=== PATIENT | female | born 1945 | race Caucasian/White ===

== ENCOUNTER → 2024-07-04 | Outpatient (CLI) | payer MEDICARE, BC, SELFPAY ==
[2024-07-04 17:15] LABS: Amphetamine/Methamp Scrn,U Negative (Negative); Barbiturate Screen,Urine Negative (Negative); Benzodiazepines Screen,Urine Negative (Negative); Benzoylecgonine Screen, Ur Negative (Negative); Fentanyl Screen,Urine Negative (Negative); Opiate Screen,Urine Positive (Negative); THC Screen,Urine Negative (Negative)
== END | disposition home or self-care (01) ==
LOC: SLDO 15:00
PROVIDERS: PCP Family Medicine; Referring Provider Family Medicine; Visit Provider Family Medicine
DX: M54.2 Cervicalgia (principal); Z71.51 Drug abuse counseling and surveillance of drug abuser
CPT/HCPCS: 80307

== ENCOUNTER 2024-07-30 15:37 | Inpatient (IN) | payer MEDICARE, BC, SELFPAY ==
[2024-07-30 15:45] VITALS: BP 165/99; PULSE 83; RESP 20; TEMP 36.4; O2SAT 97
[2024-07-30 16:04] VITALS: BMI 34.7
[2024-07-30 16:10] VITALS: BP 147/78; PULSE 89; TEMP 37.2; O2SAT 98
--- NOTE | 2024-07-30 16:34 | XR_ITS ---
Examination: CT brain head without contrast. 2-D sagittal coronal reconstructions Date and time of exam:July 30, 2024 1832 hrs. Indications: Onset generalized head today CTDI: vol (mGy):44.7 DLP: (mGycm):843 Technique: Multiple CT axial sections of the brain have been obtained, 5 mm slice thickness. Contrast has not been administered. 2-D sagittal, coronal reconstructions have been obtained Low dose protocols were performed. One or more of the following dose reduction techniques were used; automated exposure control, adjustment of the mA and/or KV according to patient size, use of iterative reconstruction technique. Findings: No significant ventricular enlargement. Intra-axial or extra-axial hemorrhage density is not seen. No mass effect or midline shift Basal cisterns are not remarkable. Fourth ventricle is midline. Cranial vault intact. Impression: Negative for acute hemorrhage, mass effect or midline shift Advise clinical correlation follow-up accordingly
--- NOTE | 2024-07-30 16:34 | XR_ITS ---
Examination: Left knee 2 views Technique one AP lateral left knee 2 views Exam date and time: July 30, 2024 1746 hrs. Indications: Patient fell today with injury to the knee, knee pain. Findings: Severe osteopenia No acute fracture No patellar dislocation Significant narrowing medial joint space Impression: No acute fracture Given the severe osteopenia, suggest short-term follow-up plain films of the knee as clinically warranted
--- NOTE | 2024-07-30 16:34 | XR_ITS ---
Examination: CT cervical spine without contrast 2-D sagittal reconstructions 2-D coronal reconstructions 3-D reconstructions. Exam date and time:July 30, 20242022 hrs. Indications: Patient fell today with injury to the neck, neck pain CTDI:vol (mGy) 7.76 DLP: (mGycm) 175 Technique: Multiple 2 mm axial sections of the cervical spine have been obtained. The coronal and sagittal reconstructions have been obtained. 3-D reconstructions have been obtained. Low dose protocols were performed. One or more of the following dose reduction techniques were used; automated exposure control, adjustment of the mA and/or KV according to patient size, use of iterative reconstruction technique. Findings: Axial sections demonstrate intact base of the skull. C1 exhibit satisfactory relationship to the odontoid. No acute cervical vertebral body fracture seen. Alignment posterior spinous processes satisfactory. Impression: No acute cervical fracture. Subtle edema in the upper lung zones
--- NOTE | 2024-07-30 16:34 | XR_ITS ---
Examination: AP chest single view Technique one AP portable semiupright chest single view Exam date and time: July 30, 2024 1649 hrs. Comparison 12/20/2011 Indications: Patient fell today with injury to the chest, chest pain Findings: Mild enlargement cardiac contour Ectatic thoracic aorta. No pneumothorax Prominent osteopenia Clavicles ribs appear intact Impression: No pneumothorax pulmonary contusion or hemothorax
--- NOTE | 2024-07-30 16:34 | XR_ITS ---
Examination:Left hip AP, lateral, AP pelvis 3 views Technique: Hip AP lateral, AP pelvis, 3 views Exam date and time:5 1746 hrs. Indications: Patient fell today with into the left hip, left hip pain. Findings: Acute angulated intertrochanteric fracture left hip Prominent osteopenia No hip dislocation Impression: Acute angulated intertrochanteric fracture left hip.
--- NOTE | 2024-07-30 16:38 | PD.EDFALL ---
ED Fall Injury RME/HPI General Chief Complaint: Fall Stated Complaint: FALL Time Seen by Provider: 07/30/24 16:31 Arrival date/time: 07/30/24 15:37 RME / HPI RME / HPI Narrative: 79-year-old female patient with significant history of chronic A-fib, currently taking Eliquis, came in via EMS for evaluation regarding ground-level fall. Patient sustained a ground-level fall after tripping on something, resulting in the pain to the left hip, left knee. Patient also hit the back of the head on the chair. Denies any neck pain denies any headache denies any LOC denies any other complaints. Patient is unable to ambulate due to pain. No medication was taken prior to arrival. Related Data Home Medications ?Medication ?Instructions ?Recorded ?Confirmed Hydrochlorothiazide 1 tab PO QDAY ##0 11/05/15 01/15/23 Synthroid 1 tab PO QDAY ##0 11/05/15 01/15/23 montelukast 10 mg tablet 10 mg PO HS #0 tabs 11/05/15 01/15/23 (Singulair) Losartan Potassium * (COZAAR *) 25 mg PO QDAY #0 tabs 04/02/17 01/15/23 albuterol sulfate 90 mcg/actuation 2 puff inhalation .prn PRN 04/01/18 01/15/23 aerosol inhaler (ProAir HFA) Respiratory Distress hydrocodone-homatropine 5 mg-1.5 1 tab PO QID 12/05/21 01/15/23 mg tablet Held on 03/08/22. Instructions: Resume on 03/09/22. loratadine 10 mg tablet 10 mg PO QDAY 12/05/21 01/15/23 pantoprazole 40 mg tablet,delayed 1 tab PO QDAY 12/05/21 01/15/23 release cranberry 500 mg capsule 650 mg PO DAILY 12/06/21 01/15/23 milk thistle seed extract 140 250 cap PO DAILY 12/06/21 01/15/23 mg-milk thistle 500 mg capsule omega 6-vei-nmi-fish oil 1,000 mg 1,000 cap PO DAILY 12/06/21 01/15/23 (120 mg-180 mg) capsule (Fish Oil) turmeric 400 mg capsule 1,000 mg PO DAILY 12/06/21 01/15/23 apixaban 5 mg tablet (Eliquis) 5 mg PO BID 01/15/23 01/15/23 tramadol 50 mg tablet 50 mg PO BID PRN 01/15/23 01/15/23 Previous Rx's ?Medication ?Instructions ?Recorded bisacodyl 10 mg rectal suppository 10 mg SC QDAY PRN constipation #12 12/11/21 (Dulcolax (bisacodyl)) ea Allergies Allergy/AdvReac Type Severity Reaction Status Date / Time Iodinated Contrast Media Allergy Severe Rash Verified 01/15/23 13:30 Sulfa (Sulfonamide Allergy Severe RASH / Verified 01/15/23 13:30 Antibiotics) SWELLING adhesive tape Allergy Intermediate Rash Verified 01/15/23 13:30 iodine Allergy Intermediate SWELLING Verified 01/15/23 13:30 latex Allergy Intermediate RASH Verified 01/15/23 13:30 Review of Systems Review of Systems Narrative Review of Systems: Review of system reviewed and within normal limits except mentioned in HPI ED Exam Narrative Physical exam: VITAL SIGNS: Reviewed. GENERAL APPEARANCE: Alert and interactive, follows commands, no acute distress, HEAD AND FACE: Non-traumatic. ENT: PERRL, pink conjunctivitis, eyelid no trauma, Mucous membrane moist. NECK: Supple, nontender, no nuchal rigidity. CHEST: No tenderness, no crepitus, no paradoxical movement, no retractions. LUNGS: Clear, well ventilated, symmetric, no rales, no wheezing, no ronchi, no stridor, good breath sounds bilaterally. HEART: Regular rate, regular rhythm, no murmur, no gallops. ABDOMEN: Soft, positive bowel sounds, nondistended, no guarding, nontender, no rebound, no masses, RECTAL: Deferred. GENITAL: Deferred. NEUROLOGICAL: Gross motor function intact sensory function intact, Appropriate for age. MUSCULOSKELETAL: low back nontender, full range of motion. EXTREMITIES: Left hip tenderness, left knee tenderness, limitation range of motion. Bilateral lower extremity lymphedema SKIN: Color pink, dry, no rash, no lacerations, no abrasions, no contusions. LYMPHATICS: Deferred. Course Quality Measures none Orders Category Date Time Status COVID-19 Screening Questionnaire NOW Care 07/30/24 21:10 Active Decision to Admit X1 Care 07/30/24 21:09 Active EKG (ED ONLY) *Do not use* NOW Care 07/30/24 16:35 Completed Consult to Orthopedic Stat Cons 07/30/24 21:[address] cervical spine wo con Stat Exams 07/30/24 16:[address] head/brain wo con Stat Exams 07/30/24 16:[address] hip LT wo con Stat Exams 07/30/24 21:11 Ordered EKG (ED Only) Stat Exams 07/30/24 16:34 Ordered XR chest 1V Stat Exams 07/30/24 16:34 Completed XR hip LT w pelvis 2-3V Stat Exams 07/30/24 16:34 Completed XR knee limited LT 2V Stat Exams 07/30/24 16:34 Completed CBC [CBC] Stat Lab 07/30/24 16:57 Completed CMP [Comprehensive Metabolic Panel] Stat Lab 07/30/24 16:57 Completed PTT [Partial Thromboplastin Time] Stat Lab 07/30/24 16:57 Completed HYDROmorphone INJ [Dilaudid Inj] Med 07/30/24 20:15 Discontinued 1 mg IVP X1 ONE Morphine Inj Med 07/30/24 16:35 Discontinued 4 mg IVP X1 ONE Ondansetron Inj [Zofran Inj] Med 07/30/24 16:35 Discontinued 4 mg IV X1 ONE Vital Signs Vital signs: Vital Signs Temperature 97.6 F 07/30/24 15:45 Pulse Rate 83 07/30/24 15:45 Respiratory Rate 20 07/30/24 15:45 Blood Pressure 165/99 H 07/30/24 15:45 Pulse Oximetry (%) 97 07/30/24 15:45 Oxygen Delivery Method Room Air 07/30/24 15:45 Fall MDM Narrative MDM Narrative:: 79-year-old female patient with significant history of chronic A-fib, currently taking Eliquis, came in via EMS for evaluation regarding ground-level fall. Patient sustained a ground-level fall after tripping on something, resulting in the pain to the left hip, left knee. Patient also hit the back of the head on the chair. Denies any neck pain denies any headache denies any LOC denies any other complaints. Patient is unable to ambulate due to pain. No medication was taken prior to arrival. X-ray of the femur showed intertrochanteric fracture of the left femur. I consulted Dr. Garcia, orthopedic surgeon, on-call, who accepted the patient for surgery. Thank you so much Dr. Garcia. Spoke with hospitalist, who admitted the patient. Patient data External records reviewed:: None Clinical information provided by:: patient Social determinants that could affect healthcare access:: none Patient has the following chronic illnesses:: Chronic A-fib hypertension hypothyroidism, vocal cord paralysis How is presenting disease/condition affected by chronic disease/condition?: exacerbated by Evaluation data The following diagnostics were reviewed and interpreted by me:: lab results and radiology exam(s) Lab and/or radiology exams considered but not ordered:: None Interpretation Summary: Laboratory workup all came back unremarkable. X-ray of the left hip showed intertrochanteric fracture of the left femur. CT scan of the head came back unremarkable CT scan of the neck came back unremarkable. Medications / Prescriptions Medications or Prescriptions considered but not ordered:: None Medication administrations:: Medication Administration History Discontinued Medications Hydromorphone HCl (Hydromorphone Inj 2 Mg/Ml Vial) 1 mg IVP X1 ONE Stop: 07/30/24 20:16 Last Admin: 07/30/24 20:24 Dose: 1 mg Documented By: EF Morphine Sulfate (Morphine Sulf Inj 10 Mg/Ml Vial) 4 mg IVP X1 ONE Stop: 07/30/24 16:36 Last Admin: 07/30/24 17:03 Dose: 4 mg Documented By: SF Ondansetron HCl (Ondansetron Inj 2 Mg/Ml Inj 2 Ml) 4 mg IV X1 ONE; Protocol Stop: 07/30/24 16:36 Last Admin: 07/30/24 17:04 Dose: 4 mg Documented By: SF Morphine, Dilaudid and Zofran Consultations Consultation(s) initiated? (list below): No Diagnosis Fall Differential Diagnosis: other (Fall, closed fracture intertrochanteric area, left femur,) Most likely diagnosis given after review of the tests above:: Fall, closed fracture intertrochanteric area left Admission Indicated Admission indicated?: indicated Explain why admission is indicated or not indicated:: Patient is to be admitted for further management. Admission Request Was there a request for admission?: Yes Admission Attestation Admission request attestation: Discussed case with [Dr. De La Rosa] from Hospitalist service regarding admission. Discussed patients ED course, exam findings, labs, and radiology results. The Hospitalist [agrees] to accept the patient for admission. Disposition Plan Disposition Plan: Admit Discharge Plan Plan Patient Disposition: Admit Acute Care w/in Hospital Disposition Comment: Stable Prescriptions/Referrals Prescriptions/Med Rec: No Action albuterol sulfate [ProAir HFA] 90 mcg/actuation HFA aerosol inhaler 2 puff INH .prn PRN (Reason: Respiratory Distress) Eliquis 5 mg tablet 5 mg PO BID tramadol 50 mg tablet 50 mg PO BID PRN montelukast [Singulair] 10 MG tablet 10 mg PO HS Qty: 0 Hydrochlorothiazide 25 mg 1 tab PO QDAY Qty: 0 Synthroid 100 mcg 1 tab PO QDAY Qty: 0 Losartan Potassium * (COZAAR *) 25 MG tablet 25 mg PO QDAY Qty: 0 loratadine 10 mg Tablet 10 mg PO QDAY pantoprazole 40 mg tablet,delayed release (DR/EC) 1 tab PO QDAY Patient Comments: TAKE 1 TABLET BY MOUTH ONCE DAILY FOR GERD hydrocodone-homatropine 5-1.5 mg Tablet 1 tab PO QID turmeric 400 mg Capsule 1,000 mg PO DAILY cranberry 500 mg Capsule 650 mg PO DAILY omega 3-vco-cav-fish oil [Fish Oil] 1,000 mg (120 mg-180 mg) Capsule 1,000 cap PO DAILY milk thist seed ext-milk thist 140-500 mg Capsule 250 cap PO DAILY bisacodyl [Dulcolax (bisacodyl)] 10 mg suppository 10 mg SC QDAY PRN (Reason: constipation) Qty: 12 0RF Referrals: Lou Preciado MD [Primary Care Provider] - In 1 week Problem List Clinical Impression: Closed intertrochanteric fracture of left femur Patient/Caregiver Discharge Instructions Print Language: Estonian Stand Alone Forms: [employer] Award Info., Patient Portal Info Letter
[2024-07-30] MEDS: MORPHINE SULF INJ 10 MG/ML VIAL 4 MG IVP (17:03)
[2024-07-30] MEDS: ONDANSETRON INJ 2 MG/ML INJ 2 ML 4 MG IV (17:04)
[2024-07-30 17:12] LABS: Basophils % (Auto) 0 % (0-2.5); Eosinophils # (Auto) 0.1 Thou/mm3 (0.0-0.5); Eosinophils % (Auto) 1 % (0-10); Hematocrit 37.1 % (36.0-46.0); Hemoglobin 11.8 g/dL (12.0-16.0); Immature Granulocytes % (Auto) 0 % (0-0); Immature Granulocytes Auto 0.03 Thou/mm3 (0.00-0.00); Lymphocytes # (Auto) 1.2 Thou/mm3 (1.0-4.8); Lymphocytes % (Auto) 12 % (10-50); Mean Corpuscular HGB Conc 31.8 g/dl (31.0-37.0); Mean Corpuscular Hemoglobin 28.2 pg (25.0-35.0); Mean Corpuscular Volume 89 fL (80-100); Monocytes # (Auto) 0.9 Thou/mm3 (0.0-0.8); Monocytes % (Auto) 10 % (0-12); Neutrophils # (Auto) 7.1 Thou/mm3 (1.8-7.7); Neutrophils % (Auto) 77 % (37-80); Nucleated Red Blood Cell % 0 /100 WBC (0); Platelet Count 163 Thou/mm3 (140-440); RDW Standard Deviation 43.9 fL (36.4-46.3); Red Blood Count 4.18 Miln/mm3 (4.00-5.20); White Blood Count 9.3 Thou/mm3 (3.6-11.0)
[2024-07-30 17:28] LABS: Partial Thromboplastin Time 27.9 Seconds (22.0-36.0)
[2024-07-30 17:41] LABS: Alanine Aminotransferase < 7 U/L (10-49); Albumin/Globulin Ratio 1.7 (1.2-2.2); Alkaline Phosphatase 94 U/L (46-116); Anion Gap 4 (7-16); Aspartate Amino Transferase 11 U/L (0-34); BUN/Creatinine Ratio 18 Ratio (12-20); Bilirubin,Total 0.4 mg/dL (0.3-1.2); Blood Urea Nitrogen 11 mg/dL (9-23); Calcium 9.3 mg/dL (8.3-10.6); Calcium (Corrected) 9.3 mg/dL (8.5-10.1); Carbon Dioxide 28.9 mMol/L (20.0-31.0); Chloride 108 mMol/L (98-107); Creatinine (Component) 0.6 mg/dL (0.6-1.3); Estimated Creatinine Clearance 72.7 mL/min (>60); Globulin 2.4 gm/dL (2.3-3.5); Glucose 117 mg/dL (74-106); Osmolality,Calculated 281 (275-295); Potassium 3.8 mMol/L (3.4-5.1); Sodium 141 mMol/L (136-145); Total Protein 6.4 gm/dL (5.7-8.2); eGFR > 60 See Note
[2024-07-30] MEDS: HYDROmorphone INJ 2 MG/ML VIAL 1 MG IVP (20:24)
--- NOTE | 2024-07-30 21:11 | XR_ITS ---
Examination: CT left hip, without contrast. 2-D sagittal reconstructions. 2-D coronal reconstructions. 3-D reconstructions. Date and time of exam:July 30, 2024 10:06 PM Indications: Patient fell today with injury to the left hip, left hip pain CTDI: vol (mGy):11.0 DLP: (mGycm):105 Technique: Multiple 1.25 mm axial sections of the pelvis left hip have been obtained. 2-D sagittal and coronal reconstructions have been obtained. 3-D reconstructions have been obtained. Low dose protocols were performed. One or more of the following dose reduction techniques were used; automated exposure control, adjustment of the mA and/or KV according to patient size, use of iterative reconstruction technique. Findings: Acute angulated intertrochanteric fracture left hip No hip dislocation Right hip bones of the pelvis intact No pelvic hematoma Impression: Acute angulated intertrochanteric fracture left hip
[2024-07-30] MEDS: PATIENT'S OWN MED 1 EA EA 5 EA PO (21:40)
--- NOTE | 2024-07-30 21:47 | PD.RESHP ---
Documentation for date of: 07/30/24 [facility] History of Present Illness History of present illness: This is a 76-year-old female with PMHx of A-fib on ELIQUIS, HTN, hypothyroidism, chronic bilateral LE lymphedema, previous orthopedic intervention for right hip and right knee, presenting after ground-level fall with left lower extremity pain. States she was running to her phone earlier this morning and she tripped over the carpet and landed on her left hip. Had immediate severe pain in her hip decided to come to the hospital. Denies lightheadedness, dizziness, generalized weakness, headaches, LOC, head trauma, chest pain, shortness of breath, palpitations, GI or urinary symptoms. ED COURSE: Vitals relatively stable except for BP 165/99, likely reactive from pain. CBC showed hemoglobin 11.8, around baseline. PTT 27.9. Chemistry relatively normal. CT cervical spine showed septal edema in upper lung zone, no cervical fracture. CT head negative for acute pathology. X-ray left hip showed acute angulated intertrochanteric fracture. X-ray left knee showed severe osteopenia, no fracture. CT hip pending. Dr. Carrasquillo was consulted. Will admit patient for surgical intervention possibly on Sunday. Procedure Writer, Dr. Thomas, has been consulted also. PMHx: A-fib, HTN, hypothyroidism, bilateral lower extremity lymphedema PSHx: Multiple orthopedic interventions for right hip fracture and right knee. MEDS: Kwesi 2.5 mg BID, HYDROCODONE HOMATROPRINE 5/1.5 mg q.6h., TRAMADOL 50 mg q.6h., BUMEX 1 mg daily, SINGULAIR 10 mg daily, PANTOPRAZOLE, SYNTHROID 100 mcg, ALBUTEROL as needed, other bowel regimen meds. ALLERGIES: SULFA DRUGS, aloe vera, latex, IODINE, IODINE contrast adhesive tape. FHx: Not relevant SH: Denies alcohol, drug or tobacco use. Exam Vital Signs Temp Pulse Resp BP Pulse Ox O2 Del Method 98.9 F 89 20 147/78 H 98 Room Air 07/30/24 16:10 07/30/24 16:10 07/30/24 15:45 07/30/24 16:10 07/30/24 16:10 07/30/24 16:10 Narrative Exam GENERAL Normal appearing elderly female, in mild distress secondary to pain. HEENT NCAT.?ANTONINO. Oral mucosa is moist. Patent Nares NECK Supple, nontender, no thyromegaly, no meningismus, no JVD, no step offs CHEST Irregularly irregular, no m/g/r CTAB, no w/r/r. Symmetrical chest rise. No intercostal subcostal retraction Atraumatic, nontender, no crepitus, symmetrical expansion. ABDOMEN Soft, flat, nontender. No guarding/rebound tenderness/masses. Bowel sounds presents EXTREMITIES Nontender, no cyanosis, no edema Chronic bilateral lower extremity 2+ lymphedema. SKIN Warm and dry, no jaundice/rashes. NEUROMUSCULAR No lumbar or midline, no CVA, no paraspinal muscle spasm or tenderness. Limited motion of left hip secondary to pain. No obvious bony deformity or overlying skin changes. No focal neurologic deficits. PSYCHIATRY Normal mood and affect, cooperative, no SI or HI or hallucinations. Results: Labs 07/30/24 16:57 07/30/24 16:57 Labs: Short CBC 07/30/24 Range/Units 16:57 WBC 9.3 (3.6-11.0) Thou/mm3 Hgb 11.8 L (12.0-16.0) g/dL Hct 37.1 (36.0-46.0) % Plt Count 163 (140-440) Thou/mm3 BMP 07/30/24 16:57 Sodium 141 Potassium 3.8 Chloride 108 H Carbon Dioxide 28.9 BUN 11 Creatinine 0.6 Glucose 117 H Calcium 9.3 Liver Function 07/30/24 Range/Units 16:57 Total Bilirubin 0.4 (0.3-1.2) mg/dL AST 11 (0-34) U/L ALT < 7 L (10-49) U/L Alkaline Phosphatase 94 (46-116) U/L Albumin 4.0 (3.4-4.8) gm/dL Quality Measures Quality Measures none Advance care planning discussed with:: patient Medications Home Medications and Allergies Home Medications ?Medication ?Instructions ?Recorded ?Confirmed ?Type Synthroid 1 tab PO QDAY ##0 11/05/15 07/31/24 History montelukast 10 mg tablet 10 mg PO HS #0 tabs 11/05/15 07/31/24 History (Singulair) albuterol sulfate 90 mcg/actuation 2 puff inhalation .prn PRN 04/01/18 07/31/24 History aerosol inhaler (ProAir HFA) Respiratory Distress hydrocodone-homatropine 5 mg-1.5 1 tab PO QID 12/05/21 07/31/24 History mg tablet loratadine 10 mg tablet 10 mg PO QDAY 12/05/21 07/31/24 History pantoprazole 40 mg tablet,delayed 1 tab PO QDAY 12/05/21 07/31/24 History release cranberry 500 mg capsule 650 mg PO DAILY 12/06/21 07/31/24 History milk thistle seed extract 140 250 cap PO DAILY 12/06/21 07/31/24 History mg-milk thistle 500 mg capsule apixaban 5 mg tablet (Eliquis) 5 mg PO BID 01/15/23 07/31/24 History tramadol 50 mg tablet 50 mg PO BID PRN pain 01/15/23 07/31/24 History Allergies Allergy/AdvReac Type Severity Reaction Status Date / Time Iodinated Contrast Media Allergy Severe Rash Verified 01/15/23 13:30 Sulfa (Sulfonamide Allergy Severe RASH / Verified 01/15/23 13:30 Antibiotics) SWELLING adhesive tape Allergy Intermediate Rash Verified 01/15/23 13:30 iodine Allergy Intermediate SWELLING Verified 01/15/23 13:30 latex Allergy Intermediate RASH Verified 01/15/23 13:30 Visit Medications Acetaminophen (Acetaminophen 325 Mg Tablet) 650 mg PO Q6H PRN PRN Reason: PAIN SCALE 1-3 (mild Stop: 08/29/24 21:35 Acetaminophen (Acetaminophen 325 Mg Tablet) 650 mg PO Q6H PRN PRN Reason: Fever >100 Stop: 08/29/24 21:35 Hydrocodone Bitart/Acetaminophen (Hydrocodone/Apap 10/325 Tab) 1 tab PO Q4HR PRN PRN Reason: PAIN SCALE 7-10 (Severe Stop: 08/04/24 21:35 Ondansetron HCl (Ondansetron Inj 2 Mg/Ml Inj 2 Ml) 4 mg IV Q6H PRN; Protocol PRN Reason: NAUSEA OR VOMITING Stop: 08/29/24 21:35 Oxycodone/Acetaminophen (Oxycodone/Apap 5/325 Tablet) 1 tab PO Q6H PRN PRN Reason: PAIN SCALE 4-6 (Moderate Stop: 08/04/24 21:35 Discontinued Medications Hydromorphone HCl (Hydromorphone Inj 2 Mg/Ml Vial) 1 mg IVP X1 ONE Stop: 07/30/24 20:16 Last Admin: 07/30/24 20:24 Dose: 1 mg Morphine Sulfate (Morphine Sulf Inj 10 Mg/Ml Vial) 4 mg IVP X1 ONE Stop: 07/30/24 16:36 Last Admin: 07/30/24 17:03 Dose: 4 mg Ondansetron HCl (Ondansetron Inj 2 Mg/Ml Inj 2 Ml) 4 mg IV X1 ONE; Protocol Stop: 07/30/24 16:36 Last Admin: 07/30/24 17:04 Dose: 4 mg Assessment & Plan Plan In summary: 76-year-old female with PMHx of A-fib on ELIQUIS, HTN, hypothyroidism, chronic bilateral LE lymphedema, allergies, chronic cough, previous orthopedic intervention for right hip and right knee, admitted for left hip fracture. Patient recommendations from cardiology and orthopedics. Left hip fracture In settings of severe osteoporosis. Fell while trying to reach her phone earlier this morning. Left hip/groin tenderness on exam, no signs of compartment syndrome, pulses intact, able to move her toes, sensation intact. ? Continued home TRAMADOL 50 mg q.6h. PRN ? Other pain control ? Surgery on Sunday with Dr. Carrasquillo ? Will hold on fluids given lymphedema ? Cardiology consulted for clearance A-fib, rate controlled HTN Likely paroxysmal per patient. Currently in A-fib, noted on exam. Unclear if patient on ANTIHYPERTENSIVE medication. Pending med rec ? Will resume home ELIQUIS 2.5 mg BID after surgery ? Cardiology, Dr. Thomas, consulted Chronic bilateral lower extremity lymphedema As described in exam. ? Continued home BUMEX 1 mg daily Hypothyroidism ? Resumed home SYNTHROID 100 mcg Seasonal allergies Chronic cough She has chronic cough related to vocal cord dysfunction. ? Continue home HYDROCODONE/HOMATROPRINE 5/1.5 mg q.6h PRN (own meds) ? Continue home ALBUTEROL inhaler q.4h. PRN ? Continue home SINGULAIR 10 mg daily GERD ? Continue PROTONIX. Health maintenance Diet: Cardiac, n.p.o. Sunday midnight GI prophylaxis: PROTONIX DVT prophylaxis: HEPARIN, hold 24 hours presurgery Antibiotics: Not indicated CODE STATUS: Full code Disposition: ORIF on Sunday Patient case was discussed with attending, Cholo Soriano MD. Griffin Dickinson DO PGYI Attending Provider Attestation/Addendum Patient was seen in the ER. She has atrial fibrillation, hypothyroidism, chronic lymphedema. She was admitted for left femoral fracture. Patient is on anticoagulation. She is alert and oriented. She denies headache. No head injury. Orthopedic evaluation requested by ER.
[2024-07-30 22:50] VITALS: BP 166/70; PULSE 73; RESP 16; O2SAT 89
[2024-07-30 23:09] VITALS: PULSE 77; TEMP 38.1; O2SAT 99
--- NOTE | 2024-07-30 23:13 | PC.NURSE ---
PT was wet due to purewick malfunction. assisted with complete linen change,new purewick and brief. RT at bedside for breathing tx.
[2024-07-30] MEDS: ALBUTEROL INH 8 GM 2 PUFF INH (23:15)
[2024-07-30 23:20] VITALS: PULSE 76; PULSE 78; RESP 18; RESP 20; RESP 89; O2SAT 98
[2024-07-31] VITALS (11 sets, daily range): BP systolic 117–170; BP diastolic 66–99; PULSE 61–96; RESP 16–98; TEMP 36.2–38.1; O2SAT 92–98
[2024-07-31] MEDS: ACETAMINOPHEN 325 MG TABLET 650 MG PO (00:06)
[2024-07-31] MEDS: HYDROcodone/APAP 10/325 TAB PO ×5 (02:21→22:54)
[2024-07-31 06:07] LABS: Basophils % (Auto) 0 % (0-2.5); Eosinophils % (Auto) 0 % (0-10); Hemoglobin 10.8 g/dL (12.0-16.0); Immature Granulocytes % (Auto) 0 % (0-0); Immature Granulocytes Auto 0.02 Thou/mm3 (0.00-0.00); Lymphocytes # (Auto) 0.9 Thou/mm3 (1.0-4.8); Lymphocytes % (Auto) 12 % (10-50); Mean Corpuscular HGB Conc 31.8 g/dl (31.0-37.0); Mean Corpuscular Hemoglobin 27.8 pg (25.0-35.0); Mean Corpuscular Volume 87 fL (80-100); Monocytes # (Auto) 0.8 Thou/mm3 (0.0-0.8); Monocytes % (Auto) 11 % (0-12); Neutrophils # (Auto) 5.7 Thou/mm3 (1.8-7.7); Neutrophils % (Auto) 76 % (37-80); Nucleated Red Blood Cell % 0 /100 WBC (0); Platelet Count 155 Thou/mm3 (140-440); Red Blood Count 3.89 Miln/mm3 (4.00-5.20); White Blood Count 7.5 Thou/mm3 (3.6-11.0)
[2024-07-31 06:38] LABS: INR 1.1 (0.9-1.3); Prothrombin Time 11.9 Seconds (9.0-12.2)
[2024-07-31 06:42] LABS: Alanine Aminotransferase 7 U/L (10-49); Albumin, Serum 3.7 gm/dL (3.4-4.8); Albumin/Globulin Ratio 1.6 (1.2-2.2); Alkaline Phosphatase 89 U/L (46-116); Anion Gap 7 (7-16); Aspartate Amino Transferase 16 U/L (0-34); BUN/Creatinine Ratio 17 Ratio (12-20); Bilirubin,Total 0.5 mg/dL (0.3-1.2); Blood Urea Nitrogen 10 mg/dL (9-23); Calcium 9.1 mg/dL (8.3-10.6); Calcium (Corrected) 9.3 mg/dL (8.5-10.1); Chloride 106 mMol/L (98-107); Creatinine (Component) 0.6 mg/dL (0.6-1.3); Estimated Creatinine Clearance 72.7 mL/min (>60); Globulin 2.3 gm/dL (2.3-3.5); Glucose 131 mg/dL (74-106); Magnesium 1.8 mg/dL (1.6-2.6); Osmolality,Calculated 284 (275-295); Phosphorous 3.8 mg/dL (2.4-5.1); Potassium 4.1 mMol/L (3.4-5.1); Sodium 142 mMol/L (136-145); eGFR > 60 See Note
[2024-07-31] MEDS: BUMETANIDE 0.5 MG TABLET 1 MG PO (08:11)
[2024-07-31] MEDS: PANTOPRAZOLE 20 MG TABLET PO (08:12)
--- NOTE | 2024-07-31 09:54 | ECHO_ITS ---
Transthoracic Echo Report Ht (in): 59.8 Wt (lb): 179 Exam Location: Echo Lab Status: Inpatient Astronomy Teacher: TABBY Hernández Indications: Procedure Performed: BP: 122 / 88 HR: 72 Technical Quality: Fair MEASUREMENTS (Male / Female) Normal Values 2D ECHO LA Systolic Diameter LX 3.2 cm 3.0 - 4.0 / 2.7 - 3.8 cm LV Ejection Fraction MOD 4C 69.5 % LV Cardiac Index MOD 4C 2196.5 cm?/min?m? DOPPLER AV Peak Gradient 15.4 mmHg AV Mean Gradient 9.4 mmHg AV Velocity Time Integral 42.0 cm AI Pressure Half Time 676.0 ms LVOT Peak Gradient 6.4 mmHg LVOT Velocity Time Integral 29.9 cm MR Peak Velocity 539.0 cm/s MR Peak Gradient 116.2 mmHg TR Peak Velocity 228.5 cm/s TR Peak Gradient 20.9 mmHg PV Peak Gradient 2.0 mmHg FINDINGS Left Ventricle The left ventricular ejection fraction is normal, estimated at 55-60%. There is grade III diastolic dysfunction of the left ventricle (restrictive filling pattern). Right Ventricle The right ventricular ejection fraction is normal. Estimated right ventricular systolic pressure is moderately elevated, Hg.mmHG Left Atrium The left atrial cavity size is moderately increased. Right Atrium The right atrial cavity size is mildly increased. Atrial Septum The interatrial septum appears normal with no evidence of a shunt. Aorta The aorta is normal by two-dimensional, color flow and Doppler interrogation. Mitral Valve [id number] mitral regurgitation. Mitral annular calcification. Aortic Valve The aortic valve is trileaflet and normal by two-dimensional, color flow and Doppler interrogation. There is no significant aortic valve regurgitation. Tricuspid Valve There is moderate tricuspid regurgitation. Pulmonic Valve Trivial pulmonic valve regurgitation. Vessels The pulmonary artery appears normal. The inferior vena cava pulmonary and hepatic veins appear normal. Pericardium The pericardium is normal by two-dimensional imaging. There is no significant pericardial effusion. CONCLUSIONS INDICATION: Cardiac clearance The transthoracic study is normal by two-dimensional, color flow imaging and Doppler interrogation. Normal left ventricular size and function. Approximate ejection fraction is .65% Mitral valve prolpase with mild mitral regurgitation MIld TR Low cardiac risk for surgery Marleny Mcclain (Electronically Signed) Final Date: 31 July 2024 17:22
--- NOTE | 2024-07-31 10:33 | EKG_ITS ---
[facility] Test Date: 2024-07-31 Pat Name: JOANIE WILLIAMSON [facility] Gender: Female Commercial Agent: JUAN JOSE : 1945 Requested By: Arnold Osuna Order Number: [id number] Reading MD: Arnold Osuna Measurements Intervals [place] Rate: 85 P: ID: QRS: -20 QRSD: 70 T: 14 QT: 356 QTc: 424 Interpretive Statements ATRIAL FIBRILLATION ABNORMAL RHYTHM ECG Compared to ECG 12/05/2021 09:03:38 No significant changes /store/S0/[id number].pdf
--- NOTE | 2024-07-31 10:36 | PC.NURSE ---
pt c/o chest pain, comes and goes after last couple of days, notified Dr. Osuna
[2024-07-31] MEDS: amLODIPine BESYLATE 5 MG TABLET 10 MG PO (10:38)
--- NOTE | 2024-07-31 11:04 | ESCONSULT_ITS ---
<Statement entered by Tree Thomas MD - 08/02/24 17:40> I personally evaluated the patient examined the patient with Dr. Pradeep Fitzgerald, PGY 1 patient is admitted to the hospital with fracture of the hip left hip after accidental fall mechanical fall and suffered a fracture known history of chronic atrial fibrillation rate controlled well known to me has had negative cardiac workup in my office with normal left-sided function negative nuclear imaging recently hence patient with low cardiac risk for surgery I evaluated the patient and reviewed all essential complaints the consultation report agree with the treatment plan recommendation as documented. Go ahead with surgery and resume Eliquis 48 hours after the procedure. HPI Data of Consult Requesting Physician: Vahid Dove MD Admitting Provider: Cholo Soriano MD Attending Provider: Vahid Dove MD Primary Care Provider: Lou Preicado MD Consult Narrative Reason for consult: Cardiac clearance History of present illness: 76-year-old female with PMHx of A-fib on ELIQUIS, HTN, hypothyroidism, chronic bilateral LE lymphedema, previous orthopedic intervention for right hip and right knee, presented after ground-level fall with left lower extremity pain. States she was running to her phone and she tripped, landed on her left hip. Had immediate severe pain in her hip decided to come to the hospital. Patient was found to have acute intertrochanteric fracture of left hip confirmed on imaging. Ortho was consulted, plan for surgery on Sunday. Cardiology consulted for cardiac clearance. Patient denies chest pain, shortness of breath, palpitations, orthopnea, lightheadedness, weakness, fatigue. Only complaint is pain in left leg. ED COURSE: ED labs unremarkable. Imaging significant for: CT of head and cervical spine unremarkable. Hip/pelvis CT and hip x-ray confirmed intertrochanteric fracture of left hip. Based on echo results, EKG, physical exam, and patient history patient is low cardiac risk for surgery. cc:: cc: Vahid Dove MD Review of Systems Review of Systems Systems Reviewed: All systems reviewed, normal except as documented Exam Vital Signs Temp Pulse Resp BP Pulse Ox O2 Del Method O2 Flow Rate 97.5 F 79 18 167/99 H 94 L Room Air 2 07/31/24 08:00 07/31/24 10:38 07/31/24 08:00 07/31/24 10:38 07/31/24 08:00 07/31/24 08:00 07/31/24 04:00 Narrative Exam PE: Gen: Well-developed and well-nourished. No acute distress. HEENT: NCAT, PERRLA, EOMI, MMM, anicteric conjunctivae. CVS: normal S1 and S2. No M/R/G. Irregular regular rhythm, regular rate. Resp: CTA B/L. No rhonchi, rales, crackles or wheezing. Abd: soft, non-tender, non-distended. MSK: Good ROM in BUE & RLE. No rash. Bilateral lower extremity edema, chronic. Left leg slightly shortened, externally rotated. Small laceration to left foot, nonbleeding. Left hip tenderness to mild palpation. Neuro: CN II-XII grossly intact. Strength 5/5 in BUE & RLE. Alert and oriented x3. Psych: appropriate mood and affect. Results Labs 07/31/24 04:20 07/31/24 04:20 Labs: Short CBC 07/30/24 07/31/24 Range/Units 16:57 04:20 WBC 9.3 7.5 (3.6-11.0) Thou/mm3 Hgb 11.8 L 10.8 L (12.0-16.0) g/dL Hct 37.1 34.0 L (36.0-46.0) % Plt Count 163 155 (140-440) Thou/mm3 BMP 07/30/24 07/31/24 16:57 04:20 Sodium 141 142 Potassium 3.8 4.1 Chloride 108 H 106 Carbon Dioxide 28.9 29.0 BUN 11 10 Creatinine 0.6 0.6 Glucose 117 H 131 H Calcium 9.3 9.1 Liver Function 07/30/24 07/31/24 Range/Units 16:57 04:20 Total Bilirubin 0.4 0.5 (0.3-1.2) mg/dL AST 11 16 (0-34) U/L ALT < 7 L 7 L (10-49) U/L Alkaline Phosphatase 94 89 (46-116) U/L Albumin 4.0 3.7 (3.4-4.8) gm/dL Quality Measures Quality Measures none Advance care planning discussed with:: patient Medications Home Medications and Allergies Home Medications ?Medication ?Instructions ?Recorded ?Confirmed ?Type Synthroid 1 tab PO QDAY ##0 11/05/15 0 07/31/24 History montelukast 10 mg tablet 10 mg PO HS #0 tabs 11/05/15 07/31/24 History (Singulair) albuterol sulfate 90 mcg/actuation 2 puff inhalation . prn PRN 04/01/18 07/31/24 History aerosol inhaler (ProAir HFA) Respiratory Distress hydrocodone-homatropine 5 mg-1.5 1 tab PO QID 12/05/21 07/31/24 History mg tablet loratadine 10 mg tablet 10 mg PO QDAY 12/05/2107/31 History pantoprazole 40 mg tablet,delayed 1 tab PO QDAY 07/31/24 History release cranberry 500 mg capsule 650 mg PO DAILY 12/06/21 History milk thistle seed extract 140 250 cap PO DAILY 2 07/31/24 History mg-milk thistle 500 mg capsule apixaban 5 mg tablet (Eliquis) 5 mg PO BID 01/15/23 History tramadol 50 mg tablet 50 mg PO BID PRN pain 07/31/24 History Allergies Allergy/AdvReac Type Severity Reaction Status Date / Time Iodinated Contrast Media Allergy Severe Rash Verified 01/15/23 13:30 Sulfa (Sulfonamide Allergy Severe RASH / Verified 01/15/23 13:30 Antibiotics) SWELLING adhesive tape Allergy Intermediate Rash Verified 01/15/23 13:30 iodine Allergy Intermediate SWELLING Verified 01/15/23 13:30 latex Allergy Intermediate RASH Verified 01/15/23 13:30 Visit Medications Acetaminophen (Acetaminophen 325 Mg Tablet) 650 mg PO Q6H PRN PRN Reason: PAIN SCALE 1-3 (mild Stop: 08/29/24 21:35 Acetaminophen (Acetaminophen 325 Mg Tablet) 650 mg PO Q6H PRN PRN Reason: Fever >100 Stop: 08/29/24 21:35 Last Admin: 07/31/24 00:06 Dose: 650 mg Hydrocodone Bitart/Acetaminophen (Hydrocodone/Apap 10/325 Tab) 1 tab PO Q4HR PRN PRN Reason: PAIN SCALE 7-10 (Severe Stop: 08/04/24 21:35 Last Admin: 07/31/24 10:38 Dose: 1 tab Albuterol (Albuterol Inh 8 Gm) 2 puff INH Q4HR PRN PRN Reason: SHORTNESS OF BREATH OR WHEEZE Stop: 08/29/24 22:26 Last Admin: 07/30/24 23:15 Dose: 2 puff Amlodipine Besylate (Amlodipine Besylate 5 Mg Tablet) 10 mg PO QDAY [facility] Stop: 08/30/24 09:44 Last Admin: 07/31/24 10:38 Dose: 10 mg Bumetanide (Bumetanide 0.5 Mg Tablet) 1 mg PO QDAY [facility] Stop: 08/30/24 08:59 Last Admin: 07/31/24 08:11 Dose: 1 mg Levothyroxine Sodium (Levothyroxine Sodium 100 Mcg Tablet) 100 mcg PO ACBR [facility] Stop: 08/30/24 05:59 Last Admin: 07/31/24 06:12 Dose: Not Given Montelukast Sodium (Montelukast Sodium 10 Mg Tablet) 10 mg PO HS [facility] Stop: 08/30/24 20:59 Ondansetron HCl (Ondansetron Inj 2 Mg/Ml Inj 2 Ml) 4 mg IV Q6H PRN; Protocol PRN Reason: NAUSEA OR VOMITING Stop: 08/29/24 21:35 Oxycodone/Acetaminophen (Oxycodone/Apap 5/325 Tablet) 1 tab PO Q6H PRN PRN Reason: PAIN SCALE 4-6 (Moderate Stop: 08/04/24 21:35 Pantoprazole Sodium (Pantoprazole 20 Mg Tablet) 20 mg PO QDAY [facility] Stop: 08/30/24 08:59 Last Admin: 07/31/24 08:12 Dose: 20 mg Tramadol HCl (Tramadol Hcl 50 Mg Tablet) 50 mg PO Q6HR PRN PRN Reason: Chronic pain Stop: 08/04/24 21:41 Discontinued Medications Albuterol/Ipratropium (Albuterol/Ipratropium (Duoneb) Rt Ara 3 Ml Nebu) 3 ml INH Q6HRRT PRN PRN Reason: wheezing/ throat irritation Stop: 08/30/24 00:59 Heparin Sodium (Porcine) (Heparin Sod Inj 5000 Unit/Ml Vial) 5,000 unit SC BID [facility] Stop: 07/31/24 00:00 Last Admin: 07/30/24 23:50 Dose: Not Given Hydromorphone HCl (Hydromorphone Inj 2 Mg/Ml Vial) 1 mg IVP X1 ONE Stop: 07/30/24 20:16 Last Admin: 07/30/24 20:24 Dose: 1 mg Morphine Sulfate (Morphine Sulf Inj 10 Mg/Ml Vial) 4 mg IVP X1 ONE Stop: 07/30/24 16:36 Last Admin: 07/30/24 17:03 Dose: 4 mg Ondansetron HCl (Ondansetron Inj 2 Mg/Ml Inj 2 Ml) 4 mg IV X1 ONE; Protocol Stop: 07/30/24 16:36 Last Admin: 07/30/24 17:04 Dose: 4 mg Patient Own Medication (Patient's Own Med 1 Ea Ea) 5 ea PO X1 ONE Stop: 07/30/24 21:37 Last Admin: 07/30/24 21:40 Dose: 5 mg Tramadol HCl (Tramadol Hcl 50 Mg Tablet) 50 mg PO Q6HR PRN PRN Reason: Chronic pain Stop: 08/04/24 21:41 Tramadol HCl (Tramadol Hcl 50 Mg Tablet) 50 mg PO Q6HR PRN PRN Reason: Chronic pain Stop: 08/04/24 21:41 Assessment & Plan Plan 76-year-old female with PMHx of A-fib on ELIQUIS, HTN, hypothyroidism, chronic bilateral LE lymphedema, allergies, chronic cough, previous orthopedic intervention for right hip and right knee, admitted for left hip fracture. Cardiology consulted for surgical clearance. #Left hip fracture In settings of severe osteoporosis status post ground-level fall. Fracture confirmed on imaging. Left hip/groin tenderness on exam, no signs of compartment syndrome, pulses intact, able to move her toes, sensation intact. Ortho consulted, plan for surgery Sunday if received cardiac clearance. Echo showed normal LV size and function, EKG showed afib rate controlled, patient low cardiac risk for surgery. -Continued home tramadol 50 mg p.o. every 6 hours as needed for pain -[place] 5 p.o. every 6 hours as needed for pain -Will hold on fluids given lymphedema -Patient cleared from cardiac standpoint to proceed with surgery #A-fib, rate controlled #HTN Patient believes that she has paroxysmal A-fib. Does not take medications for rate or rhythm control but regular rate, irregular regular rhythm. Patient hemodynamically stable, denies chest pain, palpitations, shortness of breath. -Will resume home Eliquis 2.5 mg p.o. twice daily after surgery #Chronic bilateral lower extremity lymphedema #Hypothyroidism #Seasonal allergies #Chronic cough #GERD Management as per primary team DVT prophylaxis: Held pending hip repair surgery GI prophylaxis: Protonix Diet: Cardiac, n.p.o. after midnight Lines: Peripheral IV Code status: Full code Plan of care discussed with attending Dr. Thomas. Pradeep Gomez MD PGY?1
[2024-07-31 12:03] LABS: Troponin I < 0.020 ng/mL (0.0-0.045)
--- NOTE | 2024-07-31 14:09 | XR_ITS ---
Examination: Shoulder,right, 3 views Technique: Shoulder AP internal rotation, AP external rotation, Y view shoulder, 3 views Exam date and time :July 31, 2024 1433 hours INDICATIONS: Onset right shoulder pain today. FINDINGS: Moderate osteoarthritis glenohumeral joint No shoulder fracture or dislocation No AC joint separation IMPRESSION: Moderate osteoarthritis glenohumeral joint
[2024-07-31] MEDS: traMADol HCL 50 MG TABLET PO (14:17)
--- NOTE | 2024-07-31 14:45 | PD.ADDPROG ---
Addendum Progress Note Addendum Date of report being addended: 07/31/24 Narrative: Attending's attestation: I reviewed labs, imaging, EKG, home medications and prior available records. Face to face evaluation was performed by me. I have personally examined the patient and discussed assessment and plan with the IM team. I reviewed the resident note and agree with the plan with exceptions as below. Acute left intertrochanteric angulated hip fracture Atrial fibrillation with controlled ventricular response Chronic bilateral lower extremity edema Chest pain at rest Right shoulder pain Consulted orthopedic surgery: Recommended n.p.o. after midnight for OR tomorrow Hold Lasix on surgery day Management of pain as needed Obtained cardiology consult for cardiac clearance Ordered echocardiogram Ordered EKG: Showed rate controlled A-fib. Ordered troponin: Negative Her chest pain is likely from her fall injury. Ordered right shoulder x-ray to rule out fracture/dislocation
--- NOTE | 2024-07-31 15:10 | PD.RESPRO ---
Documentation for date of: 07/31/24 Subjective Subjective Interval history: Patient seen at bedside. No acute overnight events. She is a 76-year-old female with a past medical history of hypertension, hypothyroidism, previous hip and knee surgery on the right, A-fib on Eliquis who presented to the ED on 07/30/2024 after ground-level fall which caused her some pain in her left lower extremity. X-ray of the left hip showed acute angulated intertrochanteric fracture of the left femur. Dr. Garcia was consulted and the patient is admitted for surgical intervention. [facility] has been held for surgery and the patient has been cleared from cardiac standpoint. The patient did complain of some pain in her right shoulder today as well as chest pain. EKG was unremarkable findings are negative. Shoulder x-ray with which showed moderate osteoarthritis of the glenohumeral joint, no fracture or dislocation. 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 Eyes open, symmetrical, & clear CARDIO: No chest pain on palpation. Heart RRR, no obvious murmurs PULM: No noted coughing/dyspnea. Lungs CTA B/L GI: Abdomen soft, nondistended, no pain on palpation. 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 SKIN/MSK/EXT: Left lower extremity shorter than the right, tender to touch. Bilateral lower extremity lymphedema. Shoulder mildly tender, ROM normal Objective Labs 08/01/24 04:58 08/01/24 04:58 Labs: Laboratory Results - last 24 hr 07/30/24 07/30/24 07/31/24 16:57 22:23 04:20 WBC 9.3 7.5 RBC 4.18 3.89 L Hgb 11.8 L 10.8 L Hct 37.1 34.0 L MCV 89 87 MCH 28.2 27.8 MCHC 31.8 31.8 RDW Std Deviation 43.9 43.0 Plt Count 163 155 Neut % (Auto) 77 76 Lymph % (Auto) 12 12 [place] % (Auto) 10 11 Eos % (Auto) 1 0 Baso % (Auto) 0 0 Neut # (Auto) 7.1 5.7 Lymph # (Auto) 1.2 0.9 L [place] # (Auto) 0.9 H 0.8 Eos # (Auto) 0.1 0.0 Baso # (Auto) 0.0 0.0 Immature Gran # (Auto) 0.03 H 0.02 H Absolute Nucleated RBC 0.00 0.00 Immature Gran % 0 0 Nucleated RBC % 0 0 PT 11.9 INR 1.1 APTT 27.9 Sodium 141 142 Potassium 3.8 4.1 Chloride 108 H 106 Carbon Dioxide 28.9 29.0 Anion Gap 4 L 7 BUN 11 10 Creatinine 0.6 0.6 Estim Creat Clear Calc 72.7 72.7 eGFR > 60 > 60 BUN/Creatinine Ratio 18 17 Glucose 117 H 131 H Calculated Osmolality 281 284 Calcium 9.3 9.1 Corrected Calcium 9.3 9.3 Phosphorus 3.8 Magnesium 1.8 Total Bilirubin 0.4 0.5 AST 11 16 ALT < 7 L 7 L Alkaline Phosphatase 94 89 Troponin I Total Protein 6.4 6.0 Albumin 4.0 3.7 Globulin 2.4 2.3 Albumin/Globulin Ratio 1.7 1.6 Blood Type A Positive Antibody Screen NEGATIVE Crossmatch See Detail Blood Bank Wristband ID Yes 07/31/24 11:28 WBC RBC Hgb Hct MCV MCH MCHC RDW Std Deviation Plt Count Neut % (Auto) Lymph % (Auto) [place] % (Auto) Eos % (Auto) Baso % (Auto) Neut # (Auto) Lymph # (Auto) [place] # (Auto) Eos # (Auto) Baso # (Auto) Immature Gran # (Auto) Absolute Nucleated RBC Immature Gran % Nucleated RBC % PT INR APTT Sodium Potassium Chloride Carbon Dioxide Anion Gap BUN Creatinine Estim Creat Clear Calc eGFR BUN/Creatinine Ratio Glucose Calculated Osmolality Calcium Corrected Calcium Phosphorus Magnesium Total Bilirubin AST ALT Alkaline Phosphatase Troponin I < 0.020 Total Protein Albumin Globulin Albumin/Globulin Ratio Blood Type Antibody Screen Crossmatch Blood Bank Wristband ID Quality Measures Quality Measures none Advance care planning discussed with:: patient Assessment & Plan Assessment Current Active Medications: Generic Name Dose Route Start Last Admin Trade Name Freq PRN Reason Stop Dose Admin Acetaminophen 650 mg 07/30/24 21:36 Acetaminophen 325 Mg Tablet PO 08/29/24 21:35 Q6H PRN PAIN SCALE 1-3 (mild Acetaminophen 650 mg 07/30/24 21:36 07/31/24 00:06 Acetaminophen 325 Mg Tablet PO 08/29/24 21:35 650 mg Q6H PRN Administration Fever >100 Hydrocodone Bitart/Acetaminophen 1 tab 07/30/24 21:36 07/31/24 10:38 Hydrocodone/Apap 10/325 Tab PO 08/04/24 21:35 1 tab Q4HR PRN Administration PAIN SCALE 7-10 (Severe Albuterol 2 puff 07/30/24 22:27 07/30/24 23:15 Albuterol Inh 8 Gm INH 08/29/24 22:26 2 puff Q4HR PRN Administration SHORTNESS OF BREATH OR WHEEZE Amlodipine Besylate 10 mg 07/31/24 09:45 07/31/24 10:38 Amlodipine Besylate 5 Mg Tablet PO 08/30/24 09:44 10 mg QDAY STAR Administration Bumetanide 1 mg 07/31/24 09:00 07/31/24 08:11 Bumetanide 0.5 Mg Tablet PO 08/30/24 08:59 1 mg QDAY STAR Administration Levothyroxine Sodium 100 mcg 07/31/24 06:00 07/31/24 06:12 Levothyroxine Sodium 100 Mcg Tablet PO 08/30/24 05:59 Not Given ACBR STAR Montelukast Sodium 10 mg 07/31/24 21:00 Montelukast Sodium 10 Mg Tablet PO 08/30/24 20:59 HS STAR Ondansetron HCl 4 mg 07/30/24 21:36 Ondansetron Inj 2 Mg/Ml Inj 2 Ml IV 08/29/24 21:35 Q6H PRN NAUSEA OR VOMITING Protocol Oxycodone/Acetaminophen 1 tab 07/30/24 21:36 Oxycodone/Apap 5/325 Tablet PO 08/04/24 21:35 Q6H PRN PAIN SCALE 4-6 (Moderate Pantoprazole Sodium 20 mg 07/31/24 09:00 07/31/24 08:12 Pantoprazole 20 Mg Tablet PO 08/30/24 08:59 20 mg QDAY STAR Administration Polyethylene Glycol 17 gm 07/31/24 15:15 Polyethylene Glycol 17 Gm Packet PO 08/30/24 15:14 QDAY STAR Tramadol HCl 50 mg 07/31/24 09:24 07/31/24 14:17 Tramadol Hcl 50 Mg Tablet PO 08/04/24 21:41 50 mg Q6HR PRN Administration Chronic pain Plan Summary: The patient is a 76-year-old female with PMHx of A-fib on ELIQUIS, HTN, hypothyroidism, chronic bilateral LE lymphedema, allergies, chronic cough, previous orthopedic intervention for right hip and right knee, admitted for left hip fracture. #Acute angulated intertrochanteric fracture of left hip #Status post ground-level Patient presented to the ED after she fell while trying to reach her phone earlier this morning. Left hip/groin tenderness on exam, no signs of compartment syndrome, pulses intact, able to move her toes, sensation intact. Orthopedic surgeon Dr. Garcia was consulted in the ED, recommended to admit the patient and schedule for possible surgical intervention after cardiac clearance Cardiology evaluated the patient, the patient does have a history of A-fib, an echo was ordered but the patient has been cleared for surgery. Plan: -N.p.o. after midnight -Continue pain management -Holding Eliquis for surgery -Ortho consulted, patient recommendations #History of A-fib, rate controlled #History of hypertension HTN Patient has a history of A-fib and is being followed by it applications developer Dr. Thomas. She is on Eliquis at home. On admission, patient was in A-fib, rate controlled Plan: ? Will resume home ELIQUIS 2.5 mg BID after surgery - Echocardiogram ? Cardiology, Dr. Thomas, consulted #History of chronic bilateral lower extremity lymphedema The patient has a history of chronic bilateral lower extremity edema. At home, she is on Bumex 1 mg daily. Plan: ?Will hold Bumex now, 24 hours prior to surgery Hypothyroidism ? Resumed home SYNTHROID 100 mcg GERD ? Continue PROTONIX. Health maintenance Diet: N.p.o. after midnight GI prophylaxis: PROTONIX DVT prophylaxis: Eliquis held Antibiotics: Not indicated CODE STATUS: Full code Case was discussed with Dr Osuna PGY-2 and attending physician, Dr Derrell Schaffer MD PGY-1 Disclaimer: This note was dictated by speech recognition. 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 Attending Provider Attestation/Addendum I reviewed labs, imaging, EKG, home medications and prior available records. Face to face evaluation was performed by me. I have personally examined the patient and discussed assessment and plan with the IM team. I reviewed the resident note and agree with the plan with exceptions as below. See my addendum in a separate addendum note
--- NOTE | 2024-07-31 15:26 | PC.SS ---
Patient is alert/oriented. Patient resides at home with spouse. Patient admitted for left hip fracture. Prior to hospitalization patient was independent with ADL's. She uses a walker and cane at home as needed. Patient does not use any 02 at home. Patient spouse at bedside. Patient states she is to have surgery tomorrow. She is open to the idea of going to SNF if needed. Patient has been to [facility] before and does not want to return. Patient has also had home health previously. Patient follows with Dr. Preciado for PCP. Patient follows with [facility]. Pharmacy: [facility]. SS will follow up after PT eval. is alt medical decision maker.
[2024-07-31] MEDS: POLYETHYLENE GLYCOL 17 GM PACKET PO (15:30)
[2024-07-31] MEDS: MONTELUKAST SODIUM 10 MG TABLET PO (20:33)
[2024-07-31] MEDS: LACTULOSE SYRUP 20 GM/30 ML UDC PO (20:38)
[2024-07-31] MEDS: SENNA TABLET 1 TAB PO (20:38)
[2024-07-31] MEDS: bisacodyL 10 MG SUPP PR (22:47)
[2024-08-01] VITALS (16 sets, daily range): BP systolic 120–153; BP diastolic 63–99; PULSE 67–117; RESP 15–96; TEMP 36.1–36.8; O2SAT 91–98
[2024-08-01] MEDS: traMADol HCL 50 MG TABLET PO (03:42)
[2024-08-01 05:41] LABS: Basophils # (Auto) 0.1 Thou/mm3 (0.0-0.2); Basophils % (Auto) 1 % (0-2.5); Eosinophils % (Auto) 0 % (0-10); Hematocrit 32.2 % (36.0-46.0); Hemoglobin 10.4 g/dL (12.0-16.0); Immature Granulocytes % (Auto) 0 % (0-0); Immature Granulocytes Auto 0.03 Thou/mm3 (0.00-0.00); Lymphocytes % (Auto) 10 % (10-50); Mean Corpuscular HGB Conc 32.3 g/dl (31.0-37.0); Mean Corpuscular Volume 87 fL (80-100); Monocytes # (Auto) 1.2 Thou/mm3 (0.0-0.8); Monocytes % (Auto) 13 % (0-12); Neutrophils # (Auto) 7.2 Thou/mm3 (1.8-7.7); Neutrophils % (Auto) 76 % (37-80); Nucleated Red Blood Cell % 0 /100 WBC (0); Platelet Count 163 Thou/mm3 (140-440); RDW Standard Deviation 42.8 fL (36.4-46.3); Red Blood Count 3.71 Miln/mm3 (4.00-5.20); White Blood Count 9.5 Thou/mm3 (3.6-11.0)
[2024-08-01 06:30] LABS: Alanine Aminotransferase < 7 U/L (10-49); Albumin, Serum 3.7 gm/dL (3.4-4.8); Albumin/Globulin Ratio 1.5 (1.2-2.2); Alkaline Phosphatase 86 U/L (46-116); Anion Gap 7 (7-16); Aspartate Amino Transferase 14 U/L (0-34); BUN/Creatinine Ratio 15 Ratio (12-20); Bilirubin,Total 0.6 mg/dL (0.3-1.2); Blood Urea Nitrogen 9 mg/dL (9-23); Calcium (Corrected) 9.2 mg/dL (8.5-10.1); Carbon Dioxide 28.2 mMol/L (20.0-31.0); Chloride 105 mMol/L (98-107); Creatinine (Component) 0.6 mg/dL (0.6-1.3); Estimated Creatinine Clearance 72.7 mL/min (>60); Globulin 2.4 gm/dL (2.3-3.5); Glucose 127 mg/dL (74-106); Magnesium 1.9 mg/dL (1.6-2.6); Osmolality,Calculated 280 (275-295); Potassium 3.9 mMol/L (3.4-5.1); Sodium 140 mMol/L (136-145); Total Protein 6.1 gm/dL (5.7-8.2); eGFR > 60 See Note
[2024-08-01 06:32] LABS: INR 1.1 (0.9-1.3); Prothrombin Time 12.2 Seconds (9.0-12.2)
[2024-08-01] MEDS: PANTOPRAZOLE 20 MG TABLET PO (09:08)
[2024-08-01] MEDS: amLODIPine BESYLATE 5 MG TABLET 10 MG PO (09:08)
[2024-08-01] MEDS: POLYETHYLENE GLYCOL 17 GM PACKET PO (09:08)
[2024-08-01] MEDS: MORPHINE SULF INJ 10 MG/ML VIAL 2 MG IVP (09:50)
--- NOTE | 2024-08-01 10:17 | CHAP ---
Patient was visited by the Spiritual Care Volunteer who prayed for them. (Volunteer was in the hospital from 09:20-10:17)
--- NOTE | 2024-08-01 12:54 | XR_ITS ---
Examination: Left hip 3 views Fluoroscopy Exam date and time: May 01, 2025 1446 hours INDICATIONS: Acute angulated intertrochanteric fracture left hip July 30, 2024, operative reduction internal fixation hip fracture today TECHNIQUE AND FINDINGS: Operative reduction internal fixation left hip fracture with satisfactory alignment Orthopedic hardware including femoral maury satisfactory position Fluoroscopy 61 seconds radiation dose 6.02 milligray 3 spot fluoroscopic femur films IMPRESSION: Operative reduction internal fixation left hip fracture with satisfactory alignment
--- NOTE | 2024-08-01 14:16 | ESPR_ITS ---
Documentation for date of: 08/01/24 Subjective Subjective Interval history: Patient was seen and examined at bedside. No acute overnight events. Patient reports severe pain in her hip, was given morphine 2 mg with significant improvement. She is n.p.o. for upcoming surgery with Dr. Carrasquillo. Will reevaluate patient after surgery. Continue current management. Exam Vital Signs Temp Pulse Resp BP Pulse Ox O2 Del Method O2 Flow Rate 97.4 F 67 18 131/80 H 93 L Nasal Cannula 2 08/01/24 11:52 08/01/24 11:52 08/01/24 11:52 08/01/24 11:52 08/01/24 11:52 08/01/24 11:52 08/01/24 11:52 FiO2 61 07/31/24 22:01 Narrative Exam Gen: Well-developed and well-nourished elderly female. HEENT: NCAT, PERRLA, EOMI, MMM, anicteric conjunctivae. CVS: normal S1 and S2. RRR. No M/R/G. Resp: CTA B/L. No rhonchi, rales, crackles or wheezing. Abd: soft, non-tender, non-distended. BS+ in all 4 quadrants. MSK: No edema or rash. Right hip externally rotated and extremely tender to touch. Neuro: CN II-XII grossly intact. Alert and oriented x3. Psych: appropriate mood and affect. Objective Labs 08/01/24 04:58 08/01/24 04:58 Labs: Laboratory Results - last 24 hr 07/30/24 08/01/24 22:23 04:58 WBC 9.5 RBC 3.71 L Hgb 10.4 L Hct 32.2 L MCV 87 MCH 28.0 MCHC 32.3 RDW Std Deviation 42.8 Plt Count 163 Neut % (Auto) 76 Lymph % (Auto) 10 [place] % (Auto) 13 H Eos % (Auto) 0 Baso % (Auto) 1 Neut # (Auto) 7.2 Lymph # (Auto) 1.0 [place] # (Auto) 1.2 H Eos # (Auto) 0.0 Baso # (Auto) 0.1 Immature Gran # (Auto) 0.03 H Absolute Nucleated RBC 0.00 Immature Gran % 0 Nucleated RBC % 0 PT 12.2 INR 1.1 Sodium 140 Potassium 3.9 Chloride 105 Carbon Dioxide 28.2 Anion Gap 7 BUN 9 Creatinine 0.6 Estim Creat Clear Calc 72.7 eGFR > 60 BUN/Creatinine Ratio 15 Glucose 127 H Calculated Osmolality 280 Calcium 9.0 Corrected Calcium 9.2 Phosphorus 3.0 Magnesium 1.9 Total Bilirubin 0.6 AST 14 ALT < 7 L Alkaline Phosphatase 86 Total Protein 6.1 Albumin 3.7 Globulin 2.4 Albumin/Globulin Ratio 1.5 Crossmatch See Detail Quality Measures Quality Measures VTE prophylaxis Advance care planning discussed with:: patient and spouse Assessment & Plan Assessment Current Active Medications: Generic Name Dose Route Start Last Admin Trade Name Freq PRN Reason Stop Dose Admin Acetaminophen 650 mg 07/30/24 21:36 Acetaminophen 325 Mg Tablet PO 08/29/24 21:35 Q6H PRN PAIN SCALE 1-3 (mild Acetaminophen 650 mg 07/30/24 21:36 07/31/24 00:06 Acetaminophen 325 Mg Tablet PO 08/29/24 21:35 650 mg Q6H PRN Administration Fever >100 Hydrocodone Bitart/Acetaminophen 1 tab 07/30/24 21:36 07/31/24 22:54 Hydrocodone/Apap 10/325 Tab PO 08/04/24 21:35 1 tab Q4HR PRN Administration PAIN SCALE 7-10 (Severe Albuterol 2 puff 07/30/24 22:27 07/30/24 23:15 Albuterol Inh 8 Gm INH 08/29/24 22:26 2 puff Q4HR PRN Administration SHORTNESS OF BREATH OR WHEEZE Amlodipine Besylate 10 mg 07/31/24 09:45 08/01/24 09:08 Amlodipine Besylate 5 Mg Tablet PO 08/30/24 09:44 10 mg QDAY STAR Administration Levothyroxine Sodium 100 mcg 07/31/24 06:00 08/01/24 05:32 Levothyroxine Sodium 100 Mcg Tablet PO 08/30/24 05:59 Not Given ACBR STAR Montelukast Sodium 10 mg 07/31/24 21:00 07/31/24 20:33 Montelukast Sodium 10 Mg Tablet PO 08/30/24 20:59 10 mg HS STAR Administration Ondansetron HCl 4 mg 07/30/24 21:36 Ondansetron Inj 2 Mg/Ml Inj 2 Ml IV 08/29/24 21:35 Q6H PRN NAUSEA OR VOMITING Protocol Oxycodone/Acetaminophen 1 tab 07/30/24 21:36 Oxycodone/Apap 5/325 Tablet PO 08/04/24 21:35 Q6H PRN PAIN SCALE 4-6 (Moderate Pantoprazole Sodium 20 mg 07/31/24 09:00 08/01/24 09:08 Pantoprazole 20 Mg Tablet PO 08/30/24 08:59 20 mg QDAY STAR Administration Polyethylene Glycol 17 gm 07/31/24 15:15 08/01/24 09:08 Polyethylene Glycol 17 Gm Packet PO 08/30/24 15:14 17 gm QDAY STAR Administration Tramadol HCl 50 mg 07/31/24 09:24 08/01/24 03:42 Tramadol Hcl 50 Mg Tablet PO 08/04/24 21:41 50 mg Q6HR PRN Administration Chronic pain Plan Summary: The patient is a 76-year-old female with PMHx of A-fib on ELIQUIS, HTN, hypothyroidism, chronic bilateral LE lymphedema, allergies, chronic cough, previous orthopedic intervention for right hip and right knee, admitted for left hip fracture. #Acute angulated intertrochanteric fracture of left hip #Status post ground-level Patient presented to the ED after she fell while trying to reach her phone earlier this morning. Left hip/groin tenderness on exam, no signs of compartment syndrome, pulses intact, able to move her toes, sensation intact. Orthopedic surgeon Dr. Garcia was consulted in the ED, recommended to admit the patient and schedule for possible surgical intervention after cardiac clearance Cardiology evaluated the patient, the patient does have a history of A-fib, an echo was ordered but the patient has been cleared for surgery. Plan: -N.p.o for upcoming surgery. -Continue pain management -Holding Eliquis for surgery -Ortho consulted, patient recommendations #History of A-fib, rate controlled #History of hypertension HTN Patient has a history of A-fib and is being followed by senior information security analyst Dr. Thomas. She is on Eliquis at home. On admission, patient was in A-fib, rate controlled Plan: ? Will resume home ELIQUIS 2.5 mg BID after surgery - Echocardiogram ? Cardiology, Dr. Thomas, consulted #History of chronic bilateral lower extremity lymphedema The patient has a history of chronic bilateral lower extremity edema. At home, she is on Bumex 1 mg daily. Plan: ?Will hold Bumex now, 24 hours prior to surgery Hypothyroidism ? Resumed home SYNTHROID 100 mcg GERD ? Continue PROTONIX. Health maintenance Diet: N.p.o. GI prophylaxis: PROTONIX DVT prophylaxis: Eliquis held Antibiotics: Not indicated CODE STATUS: Full code Plan of care discussed with attending Dr. Orr. Arnold Osuna MD, PGY 2. Disclaimer: This note was dictated by speech recognition. Minor errors in ballast cleaning operator may be present due to voice recognition software.
--- NOTE | 2024-08-01 14:26 | XR_ITS ---
Examination: AP pelvis, AP lateral left hip 3 views AP lateral left femur 2 views TECHNIQUE: AP pelvis, AP lateral left hip 3 views, AP lateral left femur 2 views total 5 views Exam date and time: August 01, 2024 1504 hours INDICATIONS: Postop left hip fracture today. FINDINGS: Postop reduction internal fixation intertrochanteric fracture left hip Satisfactory alignment Satisfactory position orthopedic hardware IMPRESSION: Postop reduction internal fixation intertrochanteric fracture left hip with satisfactory alignment
--- NOTE | 2024-08-01 14:27 | ESOP_ITS ---
Date of Procedure 08/01/24 Pre Op Diagnosis Displaced intertrochanter fracture of the left hip Post Op Diagnosis Same Procedure ORIF with trochanteric fixation nail. Synthes implant. Femur size 320 mm x 11 mm nail Helical blade size 90 mm Findings Refer dictation Procedure Description Patient was given general endotracheal anesthesia. Was satisfactory anesthesia was achieved patient was put on fracture table. Following that the fracture was reduced. Position checked under C arm and found to be very good Following that part was thoroughly prepped and draped. Intravenous antibiotics was given at the time of anesthesia A skin incision was made about 2 inches proximal to greater trochanter extending proximally by 2 inches or so. Deeper dissection was carried out. The tensor fascia pardeep was incised in the line of his skin incision Following that a guidepin was passed from the top of greater trochanter into the marrow canal. Once satisfactory position was achieved then reaming up to the lesser trochanter was done. Following that guidepin was removed and guidewire was passed. The length of the nail to be used was measured and decision was made to use size 320 mm long nail Following that starting with size 10.5 mm reamer the reaming was done up to 12.5 mm. Final decision was made to use size 320 mm long by 11 mm diameter nail Above-mentioned size nail was then mounted and slowly advanced into the marrow canal. The guidewire was removed Following that the Zick for the placement of the helical blade was attached. A skin incision was made over the lateral aspect of the femur. Deeper dissection was carried out. The tensor fascia pardeep was incised Following that a guidepin was passed through the lateral cortex of the femur into the subchondral portion of the head of the femur Was satisfactory position was achieved and checked under C arm then the lateral cortex was breached. After that reaming up to subchondral portion of the head of the femur was done The 90 mm long helical blade was mounted and advised introduced neck of the femur up to the subchondral portion of the head of the femur Satisfactory position was achieved and checked under C arm in both AP lateral then the placement jig was removed. With the help of flexible screwdriver the top flavor attendant was tightened to lock the helical blade Position checked under C arm and found to be good. With the help of fixed a screwdriver the placement Zick for the nail was removed. Wound was irrigated with antibiotic solution every 4 to 5 minutes Patient tolerated procedure well. There was done in layers with the help of 2-0 Vicryl. The skin was closed with francisco Estimated blood loss 100 mL To cleaning the wound with hydrogen peroxide solution a sterile dressing was applied. Anesthesia GETA Pathology / specimen None Estimated Blood Loss 100 Surgeon Luigi Garcia MD Surgical Staff Operation Date: 08/01/24 12:45 <No data on this case meets the specified criteria>
--- NOTE | 2024-08-01 14:37 | SUR.PHASEI ---
pt arrived to PACU via gurney with oral airway present, breathing unlabored, dressing to left hip clean, dry, and intact, report from Geri BROWN, Raphael RN, and Dr Son
[2024-08-01] MEDS: MORPHINE SULF INJ 10 MG/ML VIAL 3 MG IV (14:56)
[2024-08-01] MEDS: ACETAMINOPHEN IVPB 1,000 MG/100 ML VIAL 250 MG IV (15:03)
--- NOTE | 2024-08-01 15:21 | PC.SS ---
Rounding: Pt in sx today
[2024-08-01] MEDS: fentaNYL CIT INJ 50 mCg/ML AMP 2ML 25 MCG IV (15:26)
--- NOTE | 2024-08-01 15:43 | SUR.PHASEI ---
pt awake, alert, able to follow commands, breathing unlabored, dressing to left hip with small amount of faint pink tinted drainage-marked, VS stable, pt able to tolerate ice chips without difficulty swallowing or n/v, pt transferred to room at this time.
--- NOTE | 2024-08-01 16:00 | ESCONSULT_ITS ---
RE: JOANIE WILLIAMSON : 1945 DATE OF CONSULTATION: 07/31/2024 Thank you, Dr. Romero, to ask me for consult on the patient. I saw patient on 07/31/2024. The patient was admitted on 07/30/2024 with history of fall resulting in intertrochanteric fracture of the left hip. It was angulated and displaced. The emergency room doctor called me. 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 I explained that I will be leaving out of country on Sunday evening or Sunday morning towards [place] to catch the flight. I can do surgery on Sunday. However, patient stated to ER doctor that since I did the right femur surgery, they would prefer me to do it. Subsequent to that, I texted to Dr. Lopez, another orthopedic surgeon and he agreed to take care of the patient from Sunday onwards in case it is needed. Accordingly, I accepted the patient on Sunday. The patient was on Eliquis. Therefore, surgery was booked for Sunday. PAST MEDICAL HISTORY: The patient has history of high blood pressure, hypothyroidism, and chronic bilateral lymphedema. PAST SURGICAL HISTORY: Includes right distal femur surgery. DRUG HISTORY: The patient is on Synthroid, albuterol, loratadine, pantoprazole, Eliquis, and tramadol. ALLERGIES: IODINE AND ADHESIVE TAPE. PHYSICAL EXAMINATION: GENERAL: Fully alert and oriented lady. The patient's also took active part in the discussion. VITAL SIGNS: Pulse 82 per minute and blood pressure 136/84. NECK: Soft and supple. No mass felt. Trachea is centrally replaced. CARDIOVASCULAR SYSTEM: First and second heart sound normal. No murmur heard. RESPIRATORY SYSTEM: Bilateral vesicular breath sound. Chest clear. ABDOMEN: Soft. No mass felt. Bowel sounds present. EXTREMITIES: Left lower limb examination revealed tenderness. Range of motion was not tested at all. X-ray revealed displaced intertrochanteric fracture of the left hip. Prognosis and diagnosis were explained to her in detail. The patient was advised fixation with nail and screws. With the help of pictures and diagram, it was explained to her. Risk with anesthesia was explained and that includes, but not limited to reaction to anesthetic agents, cardiac arrest and rarely it might be fatal. Risk with operation includes infection and if that happens, patient may need further surgical procedure. Other risks include delayed healing, wound dehiscence, etc. No guarantee is given regarding outcome of the procedure and/or relief of symptoms. The patient was cleared for surgical procedure by Dr. Tree Thomas. Accordingly, surgery is booked for 08/01/2024. Appropriate labs done. DT: 14:37:10 TT: 15:58:00 Ref: [id number] - TID: [id number]
[2024-08-01] MEDS: MORPHINE SULF INJ 10 MG/ML VIAL 4 MG IV (19:35)
--- NOTE | 2024-08-01 19:41 | ESPR_ITS ---
<Statement entered by Tree Thomas MD - 08/02/24 17:47> The patient successfully underwent surgery postop doing well complains a lot of pain at the site of surgery and back pain but does not complain of any chest pain remains atrial fibrillation rate controlled well clinically stable we will continue to monitor the patient for any cardiac issues anticoagulation will be withheld for 48 hours and resume Eliquis day after tomorrow evaluate the patient agree with treatment plan recommendation as documented by Dr. Pradeep Caldwell Documentation for date of: 08/01/24 Subjective Subjective Interval history: No overnight events. Seen and examined at bedside. Patient complaining of left hip pain, denies chest pain, shortness of breath, fatigue, lightheadedness, weakness. Patient's status post hip repair surgery, tolerated well. Continue to monitor A-fib. Exam Vital Signs Temp Pulse Resp BP Pulse Ox O2 Del Method O2 Flow Rate 97.1 F 95 18 123/72 92 L Nasal Cannula 3 08/01/24 16:00 08/01/24 16:00 08/01/24 16:00 08/01/24 16:00 08/01/24 16:00 08/01/24 11:52 08/01/24 15:37 FiO2 61 07/31/24 22:01 Narrative Exam PE: Gen: Well-developed and well-nourished. No acute distress. HEENT: NCAT, PERRLA, EOMI, MMM, anicteric conjunctivae. CVS: normal S1 and S2. No M/R/G. Irregular regular rhythm, regular rate. Resp: CTA B/L. No rhonchi, rales, crackles or wheezing. Abd: soft, non-tender, non-distended. MSK: Good ROM in BUE & RLE. No rash. Bilateral lower extremity edema, chronic. Small laceration to left foot, nonbleeding. Left hip tenderness to mild palpation. Neuro: CN II-XII grossly intact. Strength 5/5 in BUE & RLE. Alert and oriented x3. Psych: appropriate mood and affect. Objective Labs 08/01/24 04:58 08/01/24 04:58 Labs: Laboratory Results - last 24 hr 08/01/24 04:58 WBC 9.5 RBC 3.71 L Hgb 10.4 L Hct 32.2 L MCV 87 MCH 28.0 MCHC 32.3 RDW Std Deviation 42.8 Plt Count 163 Neut % (Auto) 76 Lymph % (Auto) 10 [place] % (Auto) 13 H Eos % (Auto) 0 Baso % (Auto) 1 Neut # (Auto) 7.2 Lymph # (Auto) 1.0 [place] # (Auto) 1.2 H Eos # (Auto) 0.0 Baso # (Auto) 0.1 Immature Gran # (Auto) 0.03 H Absolute Nucleated RBC 0.00 Immature Gran % 0 Nucleated RBC % 0 PT 12.2 INR 1.1 Sodium 140 Potassium 3.9 Chloride 105 Carbon Dioxide 28.2 Anion Gap 7 BUN 9 Creatinine 0.6 Estim Creat Clear Calc 72.7 eGFR > 60 BUN/Creatinine Ratio 15 Glucose 127 H Calculated Osmolality 280 Calcium 9.0 Corrected Calcium 9.2 Phosphorus 3.0 Magnesium 1.9 Total Bilirubin 0.6 AST 14 ALT < 7 L Alkaline Phosphatase 86 Total Protein 6.1 Albumin 3.7 Globulin 2.4 Albumin/Globulin Ratio 1.5 Quality Measures Quality Measures VTE prophylaxis Advance care planning discussed with:: patient and spouse Assessment & Plan Assessment Current Active Medications: Generic Name Dose Route Start Last Admin Trade Name Freq PRN Reason Stop Dose Admin Acetaminophen 650 mg 07/30/24 21:36 Acetaminophen 325 Mg Tablet PO 08/29/24 21:35 Q6H PRN PAIN SCALE 1-3 (mild Acetaminophen 650 mg 07/30/24 21:36 07/31/24 00:06 Acetaminophen 325 Mg Tablet PO 08/29/24 21:35 650 mg Q6H PRN Administration Fever >100 Hydrocodone Bitart/Acetaminophen 1 tab 07/30/24 21:36 07/31/24 22:54 Hydrocodone/Apap 10/325 Tab PO 08/04/24 21:35 1 tab Q4HR PRN Administration PAIN SCALE 7-10 (Severe Albuterol 2 puff 07/30/24 22:27 07/30/24 23:15 Albuterol Inh 8 Gm INH 08/29/24 22:26 2 puff Q4HR PRN Administration SHORTNESS OF BREATH OR WHEEZE Amlodipine Besylate 10 mg 07/31/24 09:45 08/01/24 09:08 Amlodipine Besylate 5 Mg Tablet PO 08/30/24 09:44 10 mg QDAY STAR Administration Cefazolin Sodium/Dextrose 1 gm in 50 mls @ 50 mls/hr 08/01/24 21:00 Ancef Ivpb IV 08/02/24 05:59 Q8H STAR Levothyroxine Sodium 100 mcg 07/31/24 06:00 08/01/24 05:32 Levothyroxine Sodium 100 Mcg Tablet PO 08/30/24 05:59 Not Given ACBR STAR Montelukast Sodium 10 mg 07/31/24 21:00 07/31/24 20:33 Montelukast Sodium 10 Mg Tablet PO 08/30/24 20:59 10 mg HS STAR Administration Morphine Sulfate 4 mg 08/01/24 16:09 08/01/24 19:35 Morphine Sulf Inj 10 Mg/Ml Vial IV 08/06/24 16:08 4 mg Q4HR PRN Administration PAIN Ondansetron HCl 4 mg 08/01/24 16:09 Ondansetron Inj 2 Mg/Ml Inj 2 Ml IV 08/31/24 16:08 Q6HR PRN NAUSEA OR VOMITING Oxycodone/Acetaminophen 1 tab 07/30/24 21:36 Oxycodone/Apap 5/325 Tablet PO 08/04/24 21:35 Q6H PRN PAIN SCALE 4-6 (Moderate Pantoprazole Sodium 20 mg 07/31/24 09:00 08/01/24 09:08 Pantoprazole 20 Mg Tablet PO 08/30/24 08:59 20 mg QDAY STAR Administration Polyethylene Glycol 17 gm 07/31/24 15:15 08/01/24 09:08 Polyethylene Glycol 17 Gm Packet PO 08/30/24 15:14 17 gm QDAY STAR Administration Plan 76-year-old female with PMHx of A-fib on ELIQUIS, HTN, hypothyroidism, chronic bilateral LE lymphedema, allergies, chronic cough, previous orthopedic intervention for right hip and right knee, admitted for left hip fracture. Cardiology consulted for surgical clearance. #Left hip fracture status postsurgical repair In settings of severe osteoporosis status post ground-level fall. Fracture confirmed on imaging. Left hip/groin tenderness on exam, no signs of compartment syndrome, pulses intact, able to move her toes, sensation intact. Ortho consulted, plan for surgery Sunday if received cardiac clearance. Echo showed normal LV size and function, EKG showed afib rate controlled, patient low cardiac risk for surgery. -Continued home tramadol 50 mg p.o. every 6 hours as needed for pain -Tully 5 p.o. every 6 hours as needed for pain -Will hold on fluids given lymphedema -Patient cleared from cardiac standpoint to proceed with surgery #A-fib, rate controlled #HTN Patient believes that she has paroxysmal A-fib. Does not take medications for rate or rhythm control but regular rate, irregular regular rhythm. Patient hemodynamically stable, denies chest pain, palpitations, shortness of breath. -Will resume home Eliquis 2.5 mg p.o. twice daily pending surgery recommendation #Chronic bilateral lower extremity lymphedema #Hypothyroidism #Seasonal allergies #Chronic cough #GERD Management as per primary team DVT prophylaxis: Held pending surgery recommendations GI prophylaxis: Protonix Diet: Cardiac Lines: Peripheral IV Code status: Full code Plan of care discussed with attending Dr. Thomas. Pradeep Gomez MD PGY?1
[2024-08-01] MEDS: ceFAZolin/D5W 1 GM IVPB 1 GM/50 ML BAG IV (20:17)
[2024-08-01] MEDS: MONTELUKAST SODIUM 10 MG TABLET PO (20:19)
[2024-08-02] VITALS (8 sets, daily range): BP systolic 95–145; BP diastolic 62–84; PULSE 94–112; RESP 16–98; TEMP 36.4–36.9; O2SAT 90–98
[2024-08-02] MEDS: MORPHINE SULF INJ 10 MG/ML VIAL 4 MG IV ×4 (00:35→20:36)
[2024-08-02] MEDS: ceFAZolin/D5W 1 GM IVPB 1 GM/50 ML BAG IV (05:14)
[2024-08-02] MEDS: LEVOTHYROXINE SODIUM 100 MCG TABLET PO (05:18)
[2024-08-02 06:24] LABS: Basophils % (Auto) 0 % (0-2.5); Eosinophils % (Auto) 0 % (0-10); Hemoglobin 9.1 g/dL (12.0-16.0); Immature Granulocytes % (Auto) 1 % (0-0); Immature Granulocytes Auto 0.05 Thou/mm3 (0.00-0.00); Lymphocytes # (Auto) 0.5 Thou/mm3 (1.0-4.8); Lymphocytes % (Auto) 5 % (10-50); Mean Corpuscular HGB Conc 32.5 g/dl (31.0-37.0); Mean Corpuscular Hemoglobin 28.3 pg (25.0-35.0); Mean Corpuscular Volume 87 fL (80-100); Monocytes # (Auto) 0.9 Thou/mm3 (0.0-0.8); Monocytes % (Auto) 9 % (0-12); Neutrophils # (Auto) 8.3 Thou/mm3 (1.8-7.7); Neutrophils % (Auto) 85 % (37-80); Nucleated Red Blood Cell % 0 /100 WBC (0); Platelet Count 152 Thou/mm3 (140-440); RDW Standard Deviation 42.6 fL (36.4-46.3); Red Blood Count 3.22 Miln/mm3 (4.00-5.20); White Blood Count 9.8 Thou/mm3 (3.6-11.0)
[2024-08-02 07:03] LABS: Alanine Aminotransferase 8 U/L (10-49); Albumin, Serum 3.3 gm/dL (3.4-4.8); Albumin/Globulin Ratio 1.4 (1.2-2.2); Alkaline Phosphatase 70 U/L (46-116); Anion Gap 7 (7-16); Aspartate Amino Transferase 15 U/L (0-34); BUN/Creatinine Ratio 23 Ratio (12-20); Bilirubin,Total 0.5 mg/dL (0.3-1.2); Blood Urea Nitrogen 14 mg/dL (9-23); Calcium 8.7 mg/dL (8.3-10.6); Calcium (Corrected) 9.3 mg/dL (8.5-10.1); Carbon Dioxide 28.4 mMol/L (20.0-31.0); Chloride 104 mMol/L (98-107); Creatinine (Component) 0.6 mg/dL (0.6-1.3); Estimated Creatinine Clearance 72.7 mL/min (>60); Globulin 2.3 gm/dL (2.3-3.5); Glucose 142 mg/dL (74-106); Osmolality,Calculated 280 (275-295); Phosphorous 2.7 mg/dL (2.4-5.1); Potassium 4.1 mMol/L (3.4-5.1); Sodium 139 mMol/L (136-145); Total Protein 5.6 gm/dL (5.7-8.2); eGFR > 60 See Note
[2024-08-02] MEDS: amLODIPine BESYLATE 5 MG TABLET 10 MG PO (08:07)
[2024-08-02] MEDS: PANTOPRAZOLE 20 MG TABLET PO (08:07)
[2024-08-02] MEDS: POLYETHYLENE GLYCOL 17 GM PACKET PO (08:14)
[2024-08-02] MEDS: LACTULOSE SYRUP 20 GM/30 ML UDC PO ×2 (13:40→20:23)
[2024-08-02] MEDS: NALOXEGOL OXALATE 25 MG TABLET (NON-FORMULARY) 12.5 MG PO (13:40)
--- NOTE | 2024-08-02 14:37 | PD.RESDS ---
Planned Discharge Date 08/02/24 DS: Providers Provider Date of admission: 07/30/24 21:36 Primary care physician: Lou Preciado MD Admitting Provider: Cholo Soriano MD Attending Provider on Admission: Vahid Dove MD Consults: 07/30/24 21:10 Consult to Orthopedic Stat Comment: Left trochanteric fracture Consulting Provider: Luigi Garcia 07/30/24 21:45 Consult to Cardiology Stat Comment: AFIB on Eliqu, Here for ORIF on Sunday Consulting Provider: Tree Thomas 08/01/24 16:09 Referral Physical Therapy Routine Comment: Gait Training. Both legs full weight bear Physician Instructions: Attending Provider on DC: Arnold Osuna MD Discharging Provider: Arnold Osuna MD DS: Diagnosis Problem List Completed Was Problem List Reviewed/Reconciled?: Yes Hospital Course Hospital Course Hospital course: This is a 76-year-old female with PMHx of A-fib on ELIQUIS, HTN, hypothyroidism, chronic bilateral LE lymphedema, previous orthopedic intervention for right hip and right knee, presenting after ground-level fall with left lower extremity pain. States she was running to her phone earlier this morning and she tripped over the carpet and landed on her left hip. Had immediate severe pain in her hip decided to come to the hospital. Vitals relatively stable except for BP 165/99, likely reactive from pain. CBC showed hemoglobin 11.8, around baseline. PTT 27.9. Chemistry relatively normal. CT cervical spine showed septal edema in upper lung zone, no cervical fracture. CT head negative for acute pathology. X-ray left hip showed acute angulated intertrochanteric fracture. X-ray left knee showed severe osteopenia, no fracture. Hip CT Acute angulated intertrochanteric fracture left hip. Orthopedic surgery Dr. Carrasquillo was consulted. Patient was admitted for surgical intervention. Electronic Health Records Specialist, Dr. Thomas, has been consulted also for cardiac clearance. She underwent ORIF on 08/01/24 without complications. She is cleared for discharge to SNF today. Continue home medications as prescribed. Use Tramadol for pain control as needed twice daily. Use lactulose 1 packet up to twice daily as needed for constipation. Resume home Eliquis as prescribed. Follow up with orthopedic surgery and PCP within 2 weeks. #Acute angulated intertrochanteric fracture of left hip s/p ORIF. #Status post ground-level. #History of A-fib, rate controlled. #History of hypertension HTN. #History of chronic bilateral lower extremity lymphedema. #Hypothyroidism. #Hx of GERD. #Chronic constipation. Plan of care discussed with attending Dr. Orr. Arnold Osuna MD, PGY 2. Disclaimer: This note was dictated by speech recognition. Minor errors in business intelligence developer may be present due to voice recognition software. Time Spent with Patient Time attestation: Total time spent providing and/or coordinating discharge services: Exam Vital Signs Temp Pulse Resp BP Pulse Ox O2 Del Method O2 Flow Rate 98.4 F 100 18 95/69 98 Nasal Cannula 2 08/02/24 11:58 08/02/24 12:07 08/02/24 12:07 08/02/24 11:58 08/02/24 12:07 08/02/24 11:58 08/02/24 12:07 Narrative Exam Gen: Well-developed and well-nourished elderly female. HEENT: NCAT, PERRLA, EOMI, MMM, anicteric conjunctivae. CVS: normal S1 and S2. RRR. No M/R/G. Resp: CTA B/L. No rhonchi, rales, crackles or wheezing. Abd: soft, non-tender, non-distended. BS+ in all 4 quadrants. MSK: No edema or rash. Right hip in bandage and tender to touch. Neuro: CN II-XII grossly intact. Alert and oriented x3. Psych: appropriate mood and affect. Discharge Plan Plan Patient Disposition: Xfer Skilled Nsg Fac (SNF) Disposition Comment: Stable Care Plan Goals: Continue home medications as prescribed. Use Tramadol for pain control as needed twice daily. Use lactulose 1 packet up to twice daily as needed for constipation. Resume home Eliquis as prescribed. Follow up with orthopedic surgery and PCP within 2 weeks. Prescriptions/Referrals Prescriptions/Med Rec: New lactulose 20 gram packet 20 g PO BID PRN (Reason: constipation) Qty: 30 0RF Continued albuterol sulfate [ProAir HFA] 90 mcg/actuation HFA aerosol inhaler 2 puff INH .prn PRN (Reason: Respiratory Distress) Eliquis 5 mg tablet 5 mg PO BID tramadol 50 mg tablet 50 mg PO BID PRN (Reason: pain) montelukast [Singulair] 10 MG tablet 10 mg PO HS Qty: 0 Synthroid 100 mcg 1 tab PO QDAY Qty: 0 loratadine 10 mg Tablet 10 mg PO QDAY pantoprazole 40 mg tablet,delayed release (DR/EC) 1 tab PO QDAY Patient Comments: TAKE 1 TABLET BY MOUTH ONCE DAILY FOR GERD cranberry 500 mg Capsule 650 mg PO DAILY milk thist seed ext-milk thist 140-500 mg Capsule 250 cap PO DAILY bisacodyl [Dulcolax (bisacodyl)] 10 mg suppository 10 mg GA QDAY PRN (Reason: constipation) Qty: 12 0RF Discontinued hydrocodone-homatropine 5-1.5 mg Tablet 1 tab PO QID Referrals: Lou Preciado MD [Primary Care Provider] - Luigi Garcia MD [Physician] - Patient/Caregiver Discharge Instructions Education Materials: Understanding Hip Fractures, After a Hip Fracture: Common Questions Print Language: Tajik Stand Alone Forms: [employer] Award Info., Patient Portal Info Letter Discharge Order Discharge Orders: Discharge (Routine); Ordered 08/02/24 Ordered By: Arnold Osuna Quality Discharge Quality Measures VTE prophylaxis
--- NOTE | 2024-08-02 15:53 | PC.SS ---
SS spoke with pt, Jordin, son and pt spouse, decided SNF stay local [email or web address] first choice; [place] 2nd choice; SS submitting referral via [facility] and waiting for decison SS made aware team spoke with pt and family wanted to be considered for SNF in [place] SS met with pt bedside in morning to discuss discharge plan of or SNF; wanted to discuss with family and medical team;
--- NOTE | 2024-08-02 16:26 | ESPR_ITS ---
<Statement entered by Tree Thomas MD - 08/02/24 17:55> [facility] doing much better now but still have a lot of pain not stable to go home because she needs rehabilitation but clinically quite stable postop no complications remains atrial fibrillation rate controlled well will be started on Eliquis starting tomorrow. Patient is cardiac cortes quite stable to be [facility] the [facility] is available. Evaluated the patient and agree with the treatment plan recommendation as documented by PGY 1 Dr. Pradeep Fitzgerald Documentation for date of: 08/02/24 Subjective Subjective Interval history: No overnight events. Seen and examined at bedside. Patient complaining of left hip pain, improved. Denies chest pain, shortness of breath, fatigue, lightheadedness, weakness. Patient's status post hip repair surgery, tolerated well. Continue to monitor A-fib. Can resume Eliquis tomorrow. Exam Vital Signs Temp Pulse Resp BP Pulse Ox O2 Del Method O2 Flow Rate 98.4 F 100 18 95/69 98 Nasal Cannula 2 08/02/24 11:58 08/02/24 12:07 08/02/24 12:07 08/02/24 11:58 08/02/24 12:07 08/02/24 11:58 08/02/24 14:20 Narrative Exam PE: Gen: Well-developed and well-nourished. No acute distress. HEENT: NCAT, PERRLA, EOMI, MMM, anicteric conjunctivae. CVS: normal S1 and S2. No M/R/G. Irregular regular rhythm, regular rate. Resp: CTA B/L. No rhonchi, rales, crackles or wheezing. Abd: soft, non-tender, non-distended. MSK: Good ROM in BUE & RLE. No rash. Bilateral lower extremity edema, chronic. Small laceration to left foot, nonbleeding. Left hip tenderness to palpation. Neuro: CN II-XII grossly intact. Strength 5/5 in BUE & RLE. Alert and oriented x3. Psych: appropriate mood and affect. Objective Labs 08/02/24 05:30 08/02/24 05:30 Labs: Laboratory Results - last 24 hr 08/02/24 05:30 WBC 9.8 RBC 3.22 L Hgb 9.1 L Hct 28.0 L MCV 87 MCH 28.3 MCHC 32.5 RDW Std Deviation 42.6 Plt Count 152 Neut % (Auto) 85 H Lymph % (Auto) 5 L Harris % (Auto) 9 Eos % (Auto) 0 Baso % (Auto) 0 Neut # (Auto) 8.3 H Lymph # (Auto) 0.5 L Harris # (Auto) 0.9 H Eos # (Auto) 0.0 Baso # (Auto) 0.0 Immature Gran # (Auto) 0.05 H Absolute Nucleated RBC 0.00 Immature Gran % 1 H Nucleated RBC % 0 Sodium 139 Potassium 4.1 Chloride 104 Carbon Dioxide 28.4 Anion Gap 7 BUN 14 Creatinine 0.6 Estim Creat Clear Calc 72.7 eGFR > 60 BUN/Creatinine Ratio 23 H Glucose 142 H Calculated Osmolality 280 Calcium 8.7 Corrected Calcium 9.3 Phosphorus 2.7 Magnesium 2.0 Total Bilirubin 0.5 AST 15 ALT 8 L Alkaline Phosphatase 70 Total Protein 5.6 L Albumin 3.3 L Globulin 2.3 Albumin/Globulin Ratio 1.4 Quality Measures Quality Measures VTE prophylaxis Advance care planning discussed with:: patient and spouse Assessment & Plan Assessment Current Active Medications: Generic Name Dose Route Start Last Admin Trade Name Freq PRN Reason Stop Dose Admin Acetaminophen 650 mg 07/30/24 21:36 Acetaminophen 325 Mg Tablet PO 08/29/24 21:35 Q6H PRN PAIN SCALE 1-3 (mild Acetaminophen 650 mg 07/30/24 21:36 07/31/24 00:06 Acetaminophen 325 Mg Tablet PO 08/29/24 21:35 650 mg Q6H PRN Administration Fever >100 Hydrocodone Bitart/Acetaminophen 1 tab 07/30/24 21:36 07/31/24 22:54 Hydrocodone/Apap 10/325 Tab PO 08/04/24 21:35 1 tab Q4HR PRN Administration PAIN SCALE 7-10 (Severe Albuterol 2 puff 07/30/24 22:27 07/30/24 23:15 Albuterol Inh 8 Gm INH 08/29/24 22:26 2 puff Q4HR PRN Administration SHORTNESS OF BREATH OR WHEEZE Amlodipine Besylate 10 mg 07/31/24 09:45 08/02/24 08:07 Amlodipine Besylate 5 Mg Tablet PO 08/30/24 09:44 10 mg QDAY STAR Administration Clobetasol Propionate 0 gm 08/02/24 13:30 08/02/24 13:39 Clobetasol Propionate Cr 15 Gm Tube TOP 09/01/24 13:29 Not Given BID STAR Levothyroxine Sodium 100 mcg 07/31/24 06:00 08/02/24 05:18 Levothyroxine Sodium 100 Mcg Tablet PO 08/30/24 05:59 100 mcg ACBR STAR Administration Montelukast Sodium 10 mg 07/31/24 21:00 08/01/24 20:19 Montelukast Sodium 10 Mg Tablet PO 08/30/24 20:59 10 mg HS STAR Administration Morphine Sulfate 4 mg 08/01/24 16:09 08/02/24 12:16 Morphine Sulf Inj 10 Mg/Ml Vial IV 08/06/24 16:08 4 mg Q4HR PRN Administration PAIN Ondansetron HCl 4 mg 08/01/24 16:09 Ondansetron Inj 2 Mg/Ml Inj 2 Ml IV 08/31/24 16:08 Q6HR PRN NAUSEA OR VOMITING Oxycodone/Acetaminophen 1 tab 07/30/24 21:36 Oxycodone/Apap 5/325 Tablet PO 08/04/24 21:35 Q6H PRN PAIN SCALE 4-6 (Moderate Pantoprazole Sodium 20 mg 07/31/24 09:00 08/02/24 08:07 Pantoprazole 20 Mg Tablet PO 08/30/24 08:59 20 mg QDAY STAR Administration Polyethylene Glycol 17 gm 07/31/24 15:15 08/02/24 08:14 Polyethylene Glycol 17 Gm Packet PO 08/30/24 15:14 17 gm QDAY STAR Administration Plan 76-year-old female with PMHx of A-fib on ELIQUIS, HTN, hypothyroidism, chronic bilateral LE lymphedema, allergies, chronic cough, previous orthopedic intervention for right hip and right knee, admitted for left hip fracture. Cardiology consulted for surgical clearance. #A-fib, rate controlled #HTN Patient believes that she has paroxysmal A-fib. Does not take medications for rate or rhythm control but regular rate, irregular regular rhythm. Patient hemodynamically stable, denies chest pain, palpitations, shortness of breath. -Can resume home Eliquis 2.5 mg p.o. twice daily tomorrow #Left hip fracture status postsurgical repair In settings of severe osteoporosis status post ground-level fall. Fracture confirmed on imaging. Left hip/groin tenderness on exam, no signs of compartment syndrome, pulses intact, able to move her toes, sensation intact. Ortho consulted, plan for surgery Sunday if received cardiac clearance. Echo showed normal LV size and function, EKG showed afib rate controlled, patient low cardiac risk for surgery. Patient completed surgery, well-tolerated -Further management as per primary and surgery teams #Chronic bilateral lower extremity lymphedema #Hypothyroidism #Seasonal allergies #Chronic cough #GERD Management as per primary team DVT prophylaxis: Held pending surgery recommendations GI prophylaxis: Protonix Diet: Cardiac Lines: Peripheral IV Code status: Full code Plan of care discussed with attending Dr. Thomas. Pradeep Gomez MD PGY?1
[2024-08-02] MEDS: MONTELUKAST SODIUM 10 MG TABLET PO (20:23)
[2024-08-02] MEDS: SENNA TABLET 1 TAB PO (20:23)
[2024-08-02] MEDS: CLOBETASOL PROPIONATE CR 15 GM TUBE TOP (20:27)
[2024-08-03] VITALS (7 sets, daily range): BP systolic 110–127; BP diastolic 61–73; PULSE 67–106; RESP 16–98; TEMP 36.6–37.1; O2SAT 94–98
[2024-08-03] MEDS: ONDANSETRON INJ 2 MG/ML INJ 2 ML 4 MG IV (00:53)
[2024-08-03] MEDS: HYDROcodone/APAP 10/325 TAB PO ×3 (00:53→10:48)
[2024-08-03] MEDS: LEVOTHYROXINE SODIUM 100 MCG TABLET PO (05:34)
[2024-08-03 05:54] LABS: Basophils % (Auto) 0 % (0-2.5); Eosinophils % (Auto) 0 % (0-10); Hematocrit 26.1 % (36.0-46.0); Immature Granulocytes % (Auto) 0 % (0-0); Immature Granulocytes Auto 0.02 Thou/mm3 (0.00-0.00); Lymphocytes # (Auto) 1.2 Thou/mm3 (1.0-4.8); Lymphocytes % (Auto) 13 % (10-50); Mean Corpuscular HGB Conc 32.6 g/dl (31.0-37.0); Mean Corpuscular Hemoglobin 28.3 pg (25.0-35.0); Mean Corpuscular Volume 87 fL (80-100); Monocytes # (Auto) 1.3 Thou/mm3 (0.0-0.8); Monocytes % (Auto) 14 % (0-12); Neutrophils # (Auto) 6.8 Thou/mm3 (1.8-7.7); Neutrophils % (Auto) 73 % (37-80); Nucleated Red Blood Cell % 0 /100 WBC (0); Platelet Count 165 Thou/mm3 (140-440); RDW Standard Deviation 43.5 fL (36.4-46.3); White Blood Count 9.3 Thou/mm3 (3.6-11.0)
[2024-08-03 06:05] LABS: Hemoglobin 8.5 g/dL (12.0-16.0)
[2024-08-03 06:26] LABS: Alanine Aminotransferase 10 U/L (10-49); Albumin, Serum 3.3 gm/dL (3.4-4.8); Albumin/Globulin Ratio 1.5 (1.2-2.2); Alkaline Phosphatase 67 U/L (46-116); Anion Gap 5 (7-16); Aspartate Amino Transferase 24 U/L (0-34); BUN/Creatinine Ratio 33 Ratio (12-20); Bilirubin,Total 0.6 mg/dL (0.3-1.2); Blood Urea Nitrogen 20 mg/dL (9-23); Calcium 8.7 mg/dL (8.3-10.6); Calcium (Corrected) 9.3 mg/dL (8.5-10.1); Chloride 106 mMol/L (98-107); Creatinine (Component) 0.6 mg/dL (0.6-1.3); Estimated Creatinine Clearance 72.7 mL/min (>60); Globulin 2.2 gm/dL (2.3-3.5); Glucose 112 mg/dL (74-106); Magnesium 2.1 mg/dL (1.6-2.6); Osmolality,Calculated 283 (275-295); Phosphorous 2.5 mg/dL (2.4-5.1); Potassium 3.6 mMol/L (3.4-5.1); Sodium 140 mMol/L (136-145); Total Protein 5.5 gm/dL (5.7-8.2); eGFR > 60 See Note
[2024-08-03] MEDS: POLYETHYLENE GLYCOL 17 GM PACKET PO (08:16)
[2024-08-03] MEDS: amLODIPine BESYLATE 5 MG TABLET 10 MG PO (08:17)
[2024-08-03] MEDS: PANTOPRAZOLE 20 MG TABLET PO (08:17)
[2024-08-03] MEDS: APIXABAN 2.5 MG TABLET 5 MG PO (10:49)
[2024-08-03] MEDS: CLOBETASOL PROPIONATE CR 15 GM TUBE TOP (10:49)
--- NOTE | 2024-08-03 12:17 | PD.RESPRO ---
Documentation for date of: 08/03/24 Subjective Subjective Interval history: Patient was seen and examined at bedside. No acute overnight events. Patient reports no complaints other than constipation. She was ordered enema and Dulcolax today. Eliquis was resumed per cardiology recommendation. She has failed to be discharged yesterday due to pending placement. Continue current management. Exam Vital Signs Temp Pulse Resp BP Pulse Ox O2 Del Method O2 Flow Rate 98.2 F 78 16 110/73 94 L Room Air 1 08/03/24 08:00 08/03/24 08:17 08/03/24 08:00 08/03/24 08:17 08/03/24 08:00 08/03/24 08:00 08/03/24 06:42 Narrative Exam Gen: Well-developed and well-nourished elderly female. HEENT: NCAT, PERRLA, EOMI, MMM, anicteric conjunctivae. CVS: normal S1 and S2. RRR. No M/R/G. Resp: CTA B/L. No rhonchi, rales, crackles or wheezing. Abd: soft, non-tender, non-distended. BS+ in all 4 quadrants. MSK: No edema or rash. Right hip in bandage and tender to touch. Neuro: CN II-XII grossly intact. Alert and oriented x3. Psych: appropriate mood and affect. Objective Labs 08/03/24 04:45 08/03/24 04:45 Labs: Laboratory Results - last 24 hr 07/30/24 08/03/24 22:23 04:45 WBC 9.3 RBC 3.00 L Hgb 8.5 L Hct 26.1 L MCV 87 MCH 28.3 MCHC 32.6 RDW Std Deviation 43.5 Plt Count 165 Neut % (Auto) 73 Lymph % (Auto) 13 [place] % (Auto) 14 H Eos % (Auto) 0 Baso % (Auto) 0 Neut # (Auto) 6.8 Lymph # (Auto) 1.2 [place] # (Auto) 1.3 H Eos # (Auto) 0.0 Baso # (Auto) 0.0 Immature Gran # (Auto) 0.02 H Absolute Nucleated RBC 0.00 Immature Gran % 0 Nucleated RBC % 0 Sodium 140 Potassium 3.6 D Chloride 106 Carbon Dioxide 29.0 Anion Gap 5 L BUN 20 Creatinine 0.6 Estim Creat Clear Calc 72.7 eGFR > 60 BUN/Creatinine Ratio 33 H Glucose 112 H Calculated Osmolality 283 Calcium 8.7 Corrected Calcium 9.3 Phosphorus 2.5 Magnesium 2.1 Total Bilirubin 0.6 AST 24 ALT 10 Alkaline Phosphatase 67 Total Protein 5.5 L Albumin 3.3 L Globulin 2.2 L Albumin/Globulin Ratio 1.5 Crossmatch See Detail Quality Measures Quality Measures VTE prophylaxis Advance care planning discussed with:: patient and spouse Assessment & Plan Assessment Current Active Medications: Generic Name Dose Route Start Last Admin Trade Name Freq PRN Reason Stop Dose Admin Acetaminophen 650 mg 07/30/24 21:36 Acetaminophen 325 Mg Tablet PO 08/29/24 21:35 Q6H PRN PAIN SCALE 1-3 (mild Acetaminophen 650 mg 07/30/24 21:36 07/31/24 00:06 Acetaminophen 325 Mg Tablet PO 08/29/24 21:35 650 mg Q6H PRN Administration Fever >100 Hydrocodone Bitart/Acetaminophen 1 tab 07/30/24 21:36 08/03/24 10:48 Hydrocodone/Apap 10/325 Tab PO 08/04/24 21:35 1 tab Q4HR PRN Administration PAIN SCALE 7-10 (Severe Albuterol 2 puff 07/30/24 22:27 07/30/24 23:15 Albuterol Inh 8 Gm INH 08/29/24 22:26 2 puff Q4HR PRN Administration SHORTNESS OF BREATH OR WHEEZE Amlodipine Besylate 10 mg 07/31/24 09:45 08/03/24 08:17 Amlodipine Besylate 5 Mg Tablet PO 08/30/24 09:44 10 mg QDAY STAR Administration Apixaban 5 mg 08/03/24 10:30 08/03/24 10:49 Apixaban 2.5 Mg Tablet PO 09/02/24 10:29 5 mg BID STAR Administration Bisacodyl 10 mg 08/03/24 07:38 Bisacodyl 10 Mg Supp AK 09/02/24 07:37 QDAY PRN CONSTIPATION Protocol Clobetasol Propionate 0 gm 08/02/24 13:30 08/03/24 10:49 Clobetasol Propionate Cr 15 Gm Tube TOP 09/01/24 13:29 1 applicatio BID STAR Administration Levothyroxine Sodium 100 mcg 07/31/24 06:00 08/03/24 05:34 Levothyroxine Sodium 100 Mcg Tablet PO 08/30/24 05:59 100 mcg ACBR STAR Administration Montelukast Sodium 10 mg 07/31/24 21:00 08/02/24 20:23 Montelukast Sodium 10 Mg Tablet PO 08/30/24 20:59 10 mg HS STAR Administration Morphine Sulfate 4 mg 08/01/24 16:09 08/02/24 20:36 Morphine Sulf Inj 10 Mg/Ml Vial IV 08/06/24 16:08 4 mg Q4HR PRN Administration PAIN Ondansetron HCl 4 mg 08/01/24 16:09 08/03/24 00:53 Ondansetron Inj 2 Mg/Ml Inj 2 Ml IV 08/31/24 16:08 4 mg Q6HR PRN Administration NAUSEA OR VOMITING Oxycodone/Acetaminophen 1 tab 07/30/24 21:36 Oxycodone/Apap 5/325 Tablet PO 08/04/24 21:35 Q6H PRN PAIN SCALE 4-6 (Moderate Pantoprazole Sodium 20 mg 07/31/24 09:00 08/03/24 08:17 Pantoprazole 20 Mg Tablet PO 08/30/24 08:59 20 mg QDAY STAR Administration Polyethylene Glycol 17 gm 07/31/24 15:15 08/03/24 08:16 Polyethylene Glycol 17 Gm Packet PO 08/30/24 15:14 17 gm QDAY STAR Administration Plan Summary: The patient is a 76-year-old female with PMHx of A-fib on ELIQUIS, HTN, hypothyroidism, chronic bilateral LE lymphedema, allergies, chronic cough, previous orthopedic intervention for right hip and right knee, admitted for left hip fracture. #Acute angulated intertrochanteric fracture of left hip s/p ORIF on 08/01/2024. #Status post ground-level. Patient presented to the ED after she fell while trying to reach her phone earlier this morning. Left hip/groin tenderness on exam, no signs of compartment syndrome, pulses intact, able to move her toes, sensation intact. Orthopedic surgeon Dr. Garcia was consulted in the ED, recommended to admit the patient and schedule for possible surgical intervention after cardiac clearance Cardiology evaluated the patient, the patient does have a history of A-fib, an echo was ordered but the patient has been cleared for surgery. Plan: -Continue pain management. -Ortho consulted, patient recommendations. #History of A-fib, rate controlled. #History of hypertension. Patient has a history of A-fib and is being followed by corrective therapy aide teacher Dr. Thomas. She is on Eliquis at home. On admission, patient was in A-fib, rate controlled Plan: ? resumed ELIQUIS 5 mg BID. ? Cardiology, Dr. Thomas, consulted #History of chronic bilateral lower extremity lymphedema. The patient has a history of chronic bilateral lower extremity edema. At home, she is on Bumex 1 mg daily. Plan: ?Will hold Bumex now. #Hx of Hypothyroidism. ? Resumed home SYNTHROID 100 mcg #Hx of GERD. ? Continue PROTONIX. Health maintenance Diet: cardiac GI prophylaxis: PROTONIX DVT prophylaxis: Eliquis resumed. Antibiotics: Not indicated CODE STATUS: Full code Plan of care discussed with attending Dr. Orr. Arnold Osuna MD, PGY 2. Disclaimer: This note was dictated by speech recognition. Minor errors in implementation analyst may be present due to voice recognition software.
--- NOTE | 2024-08-03 13:04 | PC.SS ---
Addendum entered by Ezio Benz 08/03/24 17:46: SS spoke with [facility] infomring of pt able to discharge today SS received call from pt spouse transferred to nurse due to questions about medical SS spoke with Amdal and set up transportation between 4;30-5 Pt is able to discharge Original Note: SS updated [facility] on pt discharge. SS informed pt will need to have bowel movement before discharge SS spoke with Amdal, to set up transportation; Amdal will call back SS spoke with spouse and pt, confirmed [facility] acceptance; aware family will need to provide payment for transportation; SS went over medicare rights SS received confirmation [facility] has accepted and preferred by pt and family SS submitted records via [employer] for review and placement
[2024-08-03] MEDS: LACTULOSE SYRUP 20 GM/30 ML UDC 60 GM PO (13:30)
[2024-08-03] MEDS: Milk Of Magnesia Susp 30 ML UDC PO (13:30)
--- NOTE | 2024-08-03 16:28 | PC.NURSE ---
RN called report to [facility] on 08/03 @ 3530. 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
== END 2024-08-03 16:45 | disposition skilled nursing facility (03) | DRG 481 ==
LOC: SERX 21:19 → SERHOLD 21:54 → S3NX 07-31 01:35
PROVIDERS: Nurse Practitioner Family; Orthopaedic Surgery; Student in an Organized Health Care Education/Training Program; Admitting Provider Internal Medicine; Emergency Provider Emergency Medicine; PCP Family Medicine; Visit Provider Student in an Organized Health Care Education/Training Program
PROC: (CPT 27245; principal; 2024-08-01 12:30)
DX: S72.142A Displaced intertrochanteric fracture of left femur, initial encounter for closed fracture (principal); I48.20 Chronic atrial fibrillation, unspecified; J38.00 Paralysis of vocal cords and larynx, unspecified; M25.511 Pain in right shoulder; I10 Essential (primary) hypertension; M81.0 Age-related osteoporosis without current pathological fracture; I89.0 Lymphedema, not elsewhere classified; K21.9 Gastro-esophageal reflux disease without esophagitis; J30.2 Other seasonal allergic rhinitis; K59.09 Other constipation; J38.3 Other diseases of vocal cords; E03.9 Hypothyroidism, unspecified; Z79.01 Long term (current) use of anticoagulants; W18.09XA Striking against other object with subsequent fall, initial encounter; Z79.899 Other long term (current) drug therapy; Z88.2 Allergy status to sulfonamides; Z91.014 Allergy to mammalian meats
CPT/HCPCS: 36415; 70450; 71045; 72125; 73030; 73502; 73560; 73700; 76000; 80053; 83735; 84100; 84484; 85025; 85610; 85730; 86850; 86900; 86901; 86923; 87081; 93005; 93306; 94640; 96374; 96375; 97163; 99285; A4217; A4649; C1713; C1769; J0131; J0689; J0690; J1100; J1580; J2270; J2371; J2405; J2704; J3010; J3490; A9270; J0665

== ENCOUNTER → 2024-12-08 | Outpatient (CLI) | payer MEDICARE, BC, SELFPAY ==
--- NOTE | 2024-12-08 14:50 | XR_ITS ---
Examination:Left hip AP, lateral, AP pelvis 3 views Technique: Hip AP lateral, AP pelvis, 3 views Exam date and time:December 08, 2024 1506 hours INDICATIONS: Status post operative reduction internal fixation left hip fracture July 2024 left hip pain FINDINGS: Severe osteopenia Mild to moderate narrowing hip joints Healed fracture left hip with satisfactory position orthopedic hardware IMPRESSION: Mild to moderate narrowing hip joints.
--- NOTE | 2024-12-08 14:50 | XR_ITS ---
Examination: Left femur 2 views Technique one AP lateral right femur 2 views Date and time: December 08, 2024 1510 hours INDICATIONS: Status post reduction internal fixation left hip fracture July 2023 left femur pain 4 months. FINDINGS: Healed left hip fracture Satisfactory alignment Intramedullary maury satisfactory position No acute fracture No cameron cortical bone destruction IMPRESSION: Healed left hip fracture No acute fracture No cameron cortical bone destruction Mild to moderate narrowing hip joint
--- NOTE | 2024-12-08 14:50 | XR_ITS ---
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
== END | disposition home or self-care (01) ==
LOC: SDIM 14:25
PROVIDERS: PCP Internal Medicine; Referring Provider Orthopaedic Surgery; Visit Provider Orthopaedic Surgery
DX: M17.12 Unilateral primary osteoarthritis, left knee (principal); M85.862 Other specified disorders of bone density and structure, left lower leg
CPT/HCPCS: 73502; 73552; 73562

== ENCOUNTER → 2024-12-23 | Outpatient (CLI) | payer MEDICARE, BC, SELFPAY ==
[2024-12-23 13:35] LABS: Basophils # (Auto) 0.1 Thou/mm3 (0.0-0.2); Basophils % (Auto) 1 % (0-2.5); Eosinophils # (Auto) 0.1 Thou/mm3 (0.0-0.5); Eosinophils % (Auto) 3 % (0-10); Hematocrit 34.6 % (36.0-46.0); Hemoglobin 11.2 g/dL (12.0-16.0); Immature Granulocytes Auto 0.01 Thou/mm3 (0.00-0.00); Lymphocytes # (Auto) 1.8 Thou/mm3 (1.0-4.8); Lymphocytes % (Auto) 32 % (10-50); Mean Corpuscular HGB Conc 32.4 g/dl (31.0-37.0); Mean Corpuscular Hemoglobin 26.7 pg (25.0-35.0); Mean Corpuscular Volume 82 fL (80-100); Monocytes # (Auto) 0.7 Thou/mm3 (0.0-0.8); Monocytes % (Auto) 13 % (0-12); Neutrophils # (Auto) 2.8 Thou/mm3 (1.8-7.7); Neutrophils % (Auto) 52 % (37-80); Nucleated Red Blood Cell # 0.00 Thou/mm3 (0.00-0.00); Nucleated Red Blood Cell % 0 /100 WBC (0); Platelet Count 198 Thou/mm3 (140-440); RDW Standard Deviation 45.6 fL (36.4-46.3); Red Blood Count 4.20 Miln/mm3 (4.00-5.20); White Blood Count 5.5 Thou/mm3 (3.6-11.0)
[2024-12-23 13:45] LABS: Glucose Estimated Average 117 mg/dL (80-131); Hemoglobin A1C 5.7 % Hgb (4.8-6.0)
[2024-12-23 14:01] LABS: Alanine Aminotransferase < 7 U/L (10-49); Albumin, Serum 4.1 gm/dL (3.4-4.8); Albumin/Globulin Ratio 1.6 (1.2-2.2); Alkaline Phosphatase 115 U/L (46-116); Anion Gap 8 (7-16); Aspartate Amino Transferase 15 U/L (0-34); BUN/Creatinine Ratio 23 Ratio (12-20); Bilirubin,Total 0.4 mg/dL (0.3-1.2); Blood Urea Nitrogen 16 mg/dL (9-23); Calcium 9.2 mg/dL (8.3-10.6); Calcium (Corrected) 9.2 mg/dL (8.5-10.1); Carbon Dioxide 29.7 mMol/L (20.0-31.0); Cardiac Risk Estimate 3.2 RATIO (3.7-5.6); Chloride 107 mMol/L (98-107); Cholesterol 156 mg/dL (132-200); Creatinine (Component) 0.7 mg/dL (0.6-1.3); Globulin 2.6 gm/dL (2.3-3.5); Glucose 95 mg/dL (74-106); HDL Cholesterol 49 mg/dL (40-60); LDL Cholesterol,Calculated 92 mg/dL (0-130); Osmolality,Calculated 289 (275-295); Potassium 3.7 mMol/L (3.4-5.1); Sodium 145 mMol/L (136-145); Thyroid Stimulating Hormone 2.44 uIU/mL (0.55-4.78); Total Protein 6.7 gm/dL (5.7-8.2); Triglycerides 75 mg/dL (30-150); eGFR > 60 See Note
[2024-12-23 14:57] LABS: Amphetamine/Methamp Scrn,U Negative (Negative); Barbiturate Screen,Urine Negative (Negative); Benzodiazepines Screen,Urine Negative (Negative); Benzoylecgonine Screen, Ur Negative (Negative); Fentanyl Screen,Urine Negative (Negative); Opiate Screen,Urine Positive (Negative); THC Screen,Urine Negative (Negative)
== END | disposition home or self-care (01) ==
LOC: COPL 12:45
PROVIDERS: PCP Internal Medicine; Referring Provider Internal Medicine; Visit Provider Internal Medicine
DX: Z00.01 Encounter for general adult medical examination with abnormal findings (principal); E03.9 Hypothyroidism, unspecified; I10 Essential (primary) hypertension; K21.9 Gastro-esophageal reflux disease without esophagitis; I48.0 Paroxysmal atrial fibrillation; M25.552 Pain in left hip
CPT/HCPCS: 36415; 80053; 80061; 80307; 83036; 84443; 85025

== ENCOUNTER → 2024-12-24 | Outpatient (CLI) | payer MEDICARE, BC, SELFPAY | END | disposition home or self-care (01) | LOC: SLDO 14:36 | PROVIDERS: PCP Student in an Organized Health Care Education/Training Program; Referring Provider Student in an Organized Health Care Education/Training Program; Visit Provider Student in an Organized Health Care Education/Training Program | DX: N39.0 Urinary tract infection, site not specified (principal) | CPT/HCPCS: 87086 ==

== ENCOUNTER → 2025-02-27 | Outpatient (CLI) | payer MEDICARE, BC, SELFPAY ==
--- NOTE | 2025-02-27 15:18 | XR_ITS ---
Examination:Left hip AP, lateral, AP pelvis 3 views Technique: Hip AP lateral, AP pelvis, 3 views Exam date and time:February 27, 2025 1521 hours INDICATIONS: Status post hip surgery August 01, 2024 FINDINGS: Healed hip fracture with satisfactory alignment Orthopedic hardware satisfactory position Partial visualization right femoral maury Bones of the pelvis intact IMPRESSION: Healed left hip fracture with satisfactory alignment.
--- NOTE | 2025-02-27 15:18 | XR_ITS ---
Examination: Left femur 2 views Technique AP lateral left femur 2 views Date and time: February 27, 2025, 1532 hours INDICATIONS: History hip surgery August 01, 2024. FINDINGS: Healed left hip fracture with satisfactory alignment Long intramedullary maury satisfactory position Shaft of the femur intact IMPRESSION: Healed left hip fracture with satisfactory alignment Moderate to advanced tricompartment osteoarthritis left knee
== END | disposition home or self-care (01) ==
PROVIDERS: PCP Family Medicine; Referring Provider Orthopaedic Surgery; Visit Provider Orthopaedic Surgery
DX: M25.552 Pain in left hip (principal); M17.12 Unilateral primary osteoarthritis, left knee; Z87.81 Personal history of (healed) traumatic fracture; Z98.890 Other specified postprocedural states
CPT/HCPCS: 73502; 73552

== ENCOUNTER → 2025-05-29 | Outpatient (BNVA) | payer MEDICARE, BC, SELFPAY | END | disposition home or self-care (01) | PROVIDERS: PCP Family Medicine; Referring Provider Family Medicine; Visit Provider Urology | DX: N39.0 Urinary tract infection, site not specified (principal); M79.89 Other specified soft tissue disorders; I48.91 Unspecified atrial fibrillation; Z87.440 Personal history of urinary (tract) infections; Z99.3 Dependence on wheelchair | CPT/HCPCS: 81003; 99211; 99212; G0463 ==